=== PATIENT | female | born 1965 | race Caucasian/White ===

== ENCOUNTER 2016-05-24 17:19 | Inpatient (IN) | payer SELFPAY ==
--- NOTE | 2016-05-24 18:29 | ER Document Report ---
ED Medical Screen (RME) - General Chief Complaint: Flank Pain Stated Complaint: RIGHT FLANK PAIN TRAVEL OUTSIDE OF THE [place] IN LAST 30 DAYS: No - HPI Patient complains to provider of: right flank pain Notes: 05/24/16 18:28 Right flank pain for 4 days with cold-like symptoms no dysuria no diarrhea patient history hysterectomy - Related Data Allergies/Adverse Reactions: ciprofloxacin [From Cipro] Allergy (Verified 05/24/16 17:24) ciprofloxacin HCl [From Cipro] Allergy (Verified 05/24/16 17:24) Past Medical History - Past Medical History Cardiac Medical History: Reports: Hx Hypertension Renal/ Medical History: Denies: Hx Peritoneal Dialysis Musculoskeltal Medical History: Reports Hx Arthritis, Reports Hx Muscle Spasm Psychiatric Medical History: Reports: Hx Depression Past Surgical History: Reports: Hx Appendectomy, Hx Cholecystectomy, Hx Hysterectomy - Immunizations Hx Diphtheria, Pertussis, Tetanus Vaccination: Yes Review of Systems - Review of Systems Gastrointestinal: Abdominal pain Physical Exam - Vital signs Vitals: Temp Pulse Resp BP Pulse Ox 98.5 F 110 H 22 H 197/110 H 97 05/24/16 17:27 05/24/16 17:27 05/24/16 17:27 05/24/16 17:27 05/24/16 17:27 - Cardiovascular Rhythm: Regular Heart sounds: Normal auscultation Course - Vital Signs Vital signs: Temp Pulse Resp BP Pulse Ox 98.5 F 110 H 22 H 197/110 H 97 05/24/16 17:27 05/24/16 17:27 05/24/16 17:27 05/24/16 17:27 05/24/16 17:27
[2016-05-24 18:44] LABS: ABSOLUTE EOSINOPHILS # (AUTO) 0.3 10^3/uL (0.0-0.6); ABSOLUTE LYMPHOCYTES (AUTO) 3.2 10^3/uL (0.5-4.7); ABSOLUTE MONOCYTES (AUTO) 0.7 10^3/uL (0.1-1.4); ABSOLUTE NEUT (AUTO) 6.3 10^3/uL (1.7-8.2); BASOPHILS % (AUTO) 0.4 % (0-2); EOSINOPHILS % (AUTO) 2.9 % (0-6); HEMATOCRIT 41.5 % (36.0-47.0); HEMOGLOBIN 14.5 g/dL (12.0-15.5); LYMPHOCYTES % (AUTO) 30.4 % (13-45); MEAN CORPUSCULAR HEMOGLOBIN 33.2 pg (27.0-33.4); MEAN CORPUSCULAR VOLUME 95 fl (80-97); MONOCYTES % (AUTO) 6.9 % (3-13); RED BLOOD COUNT 4.37 10^6/uL (3.72-5.28); RED CELL DISTRIBUTION WIDTH 13.9 % (11.5-14.0); SEGMENTED NEUTROPHILS % (AUTO) 59.4 % (42-78); WHITE BLOOD COUNT 10.7 10^3/uL (4.0-10.5)
[2016-05-24 18:55] LABS: APPEARANCE,URINE SLIGHTLY-CLOUDY; BILIRUBIN,URINE NEGATIVE (NEGATIVE); GLUCOSE, URINE NEGATIVE (NEGATIVE); KETONES,URINE NEGATIVE (NEGATIVE); LEUKOCYTE ESTERASE,URINE NEGATIVE (NEGATIVE); NITRITE,URINE NEGATIVE (NEGATIVE); PROTEIN,URINE NEGATIVE (NEGATIVE); URINE SPECIFIC GRAVITY 1.025; UROBILINOGEN,URINE NEGATIVE mg/dL (<2.0)
[2016-05-24 19:05] LABS: ALANINE AMINOTRANSFERASE 53 U/L (9-52); ALBUMIN 4.5 g/dL (3.5-5.0); ALKALINE PHOSPHATASE 106 U/L (38-126); ANION GAP 13 (5-19); ASPARTATE AMINO TRANSFERASE 33 U/L (14-36); BILIRUBIN,DIRECT 0.2 mg/dL (0.0-0.4); BILIRUBIN,TOTAL 0.6 mg/dL (0.2-1.3); BLOOD UREA NITROGEN 18 mg/dL (7-20); CALCIUM 9.7 mg/dL (8.4-10.2); CARBON DIOXIDE 26 mmol/L (22-30); CHLORIDE 104 mmol/L (98-107); CREATININE RESULT 0.73 mg/dL (0.52-1.25); GLUCOSE 129 mg/dL (75-110); LIPASE 49.2 U/L (23-300); POTASSIUM 3.7 mmol/L (3.6-5.0); SODIUM 143.3 mmol/L (137-145); TOTAL PROTEIN 7.3 g/dL (6.3-8.2)
--- NOTE | 2016-05-24 21:07 | ER Document Report ---
ED GI/ - General Chief Complaint: Flank Pain Stated Complaint: RIGHT FLANK PAIN Notes: He shouldn't is a 50-year-old female presents emergency Department complaining of abdominal pain. Patient states that over the past week she has had a common cold with a dry cough but she denies any productive cough or fevers. She states that over the past 4 days she has had pain in her over her right iliac crest but now she has an area of swelling over her abdomen and up into her flank that is become more severe every day. She's been taking Motrin 400 mg every 8 hours for pain which she states is not helping at all. She denies any nausea, vomiting, constipation or diarrhea. States that her last bowel movement was this morning and was normal. Medical history significant for neurofibromatosis as well as history of kidney stones. Past surgical history significant for multiple surgeries for neurofibromatosis including removal of one on her left kidney, as well as cholecystectomy, appendectomy and hysterectomy TRAVEL OUTSIDE OF THE [place] IN LAST 30 DAYS: No - Related Data Allergies/Adverse Reactions: ciprofloxacin [From Cipro] Allergy (Verified 05/24/16 17:24) ciprofloxacin HCl [From Cipro] Allergy (Verified 05/24/16 17:24) Past Medical History - Social History Smoking Status: Current Every Day Smoker Drug Abuse: None Family History: Reviewed & Not Pertinent Patient has suicidal ideation: No Patient has homicidal ideation: No - Past Medical History Cardiac Medical History: Reports: Hx Hypertension Renal/ Medical History: Denies: Hx Peritoneal Dialysis Musculoskeltal Medical History: Reports Hx Arthritis, Reports Hx Muscle Spasm Psychiatric Medical History: Reports: Hx Depression Past Surgical History: Reports: Hx Appendectomy, Hx Cholecystectomy, Hx Hysterectomy - Immunizations Hx Diphtheria, Pertussis, Tetanus Vaccination: Yes Review of Systems - Review of Systems EENT: See HPI Respiratory: See HPI Gastrointestinal: See HPI -: Yes All other systems reviewed and negative Physical Exam - Vital signs Vitals: Temp Pulse Resp BP Pulse Ox 98.5 F 110 H 22 H 197/110 H 97 05/24/16 17:27 05/24/16 17:27 05/24/16 17:27 05/24/16 17:27 05/24/16 17:27 - Notes Notes: Vital signs: Initial blood pressure was hypertensive, recheck once patient was in a room was 165/109 and denies any history of high blood pressure but is in severe pain. PHYSICAL EXAM GENERAL: Alert, interacts well. HEAD: Normocephalic, atraumatic. EYES: Pupils equal, round, and reactive to light. Extraocular movements intact. ENT: Oral mucosa moist, tongue midline. NECK: Full range of motion. Supple. Trachea midline. LUNGS: Clear to auscultation bilaterally, no wheezes, rales, or rhonchi. No respiratory distress. HEART: Regular rate and rhythm. No murmurs, gallops, or rubs. ABDOMEN: distended, tender on the superficial aspect. Evidence of swelling in tense area along the right lower quadrants up into the right flank that is tender to superficial touch. Patient does have a history of an umbilical hernia that is easily reducible and nontender. No guarding, rebound, or rigidity.. Bowel sounds present in all 4 quadrants. EXTREMITIES: Moves all 4 extremities spontaneously. No edema, radial and dorsalis pedis pulses 2/4 bilaterally. No cyanosis. NEUROLOGICAL: Alert and oriented x4. Normal speech. PSYCH: Normal affect, normal mood. SKIN: Warm, dry, normal turgor. No rashes or lesions noted. Course - Re-evaluation Re-evalutation: 05/24/16 22:15 Patient is a 50-year-old female who is hemodynamically stable, no acute distress and afebrile. H&H is stable, no evidence of leukocytosis. No evidence of electrolyte abnormalities, abnormal liver, pancreatic or renal function. Renal stone protocol CT reveals inflammation and hemorrhage into the abdominal wall musculature of the right side of the abdomen. This is involved from the right upper quadrant into the iliac crest as well as into the retroperitoneum and along the flank. Since are not available from the radiologist. Based on this finding I discussed with supervising physician Dr. Odell Harris who has recommended consultation to surgical list on-call. I have consulted Dr. Hector Medrano who has come to evaluate the patient. After evaluation of her CT scan as well as discussing with the patient, he has recommended admission to the hospital for evaluation by IR tomorrow for possible angiogram and embolization of the vessel. Discussion with patient she is agreeable. Per [facility] protocol and guidelines, this case was discussed with supervising physician Dr. Odell Harris prior to admission - Vital Signs Vital signs: Temp Pulse Resp BP Pulse Ox 98.5 F 110 H 22 H 197/110 H 97 05/24/16 17:27 05/24/16 17:27 05/24/16 17:27 05/24/16 17:27 05/24/16 17:27 - Laboratory Result Diagrams: 05/24/16 18:30 05/24/16 18:30 Laboratory results interpreted by me: 05/24/16 05/24/16 05/24/16 18:30 18:30 18:35 WBC 10.7 H Glucose 129 H ALT 53 H Urine Blood SMALL H - Diagnostic Test Radiology reviewed: Image reviewed, Reports reviewed Discharge - Discharge Clinical Impression: Hematoma of muscle Disposition: ADMITTED INPATIENT Admitting Provider: Surgicalist - [facility] Unit Admitted: Surgical Floor
[2016-05-24] MEDS ORDERED: NORMAL SALINE 1000 ML 1,000 ML IV PRN (21:34)
[2016-05-24] MEDS ORDERED: MORPHINE SULFATE 10 MG/ML INJ IV ONE (21:34)
[2016-05-24] MEDS ORDERED: HYDRALAZINE HCL INJ/PF 20 MG/1 ML SDV IV ONE (22:21)
--- NOTE | 2016-05-24 22:38 | HISTORY AND PHYSICAL E ---
History and Physical NAME: MAXIMILIAN MCGHEE : 1965 AGE: 50Y ADMITTED: 05/24/2016 ROOM: ED39 CHIEF COMPLAINT: Right abdominal side pains. HISTORY OF PRESENT ILLNESS: This is a 50-year-old female with known history of neurofibromatosis who has been coughing for the past 4 days and complaining of right lateral abdominal wall pains and getting worse. She has a CAT scan of the abdomen in the emergency room, which showed an area of moderate inflammatory changes in the right lateral abdominal musculature, as well as in the right lower quadrant and retroperitoneum. This appears to be probable hemorrhage of uncertain etiology. Also has hemorrhage above the level of the right iliac crest. PAST HISTORY: 1. History of total hysterectomy for bleeding neurofibromatosis. 2. Lap appendectomy. 3. Lap cholecystectomy. 4. Multiple excisions of neurofibromatosis on her scalp, right side near the ribs, the area just above the kidney. She claims she has at least 52 neurofibromatosis in her body. FAMILY HISTORY: She does not know her father. Her mother's side does not have any history of neurofibromatosis. SOCIAL HISTORY: Smokes 1/2 pack a day. Denies alcohol or drug use. REVIEW OF SYSTEMS: As in HPI. There has been coughing for at least 4 days and really has severe cough. She also took ibuprofen 400 mg every 8 h. for the past 2 days. Severe pain along the right side of the abdomen and noted some swelling. Denies any dysuria, diarrhea or constipation. No headaches. No earaches. No balance problems. No chest pains. The rest of the review of systems are unremarkable. ALLERGIES: No known. PHYSICAL EXAMINATION: GENERAL: Well-developed, slightly overweight female, alert and oriented, complaining of a lot of pains on the right abdominal wall area. NECK: Supple. No thyromegaly. LUNGS: Clear. HEART: Regular sinus rhythm. ABDOMEN: Soft. She has marked tenderness along the right side above the iliac crest to the costal margin area. This was also noted to be quite swollen compared to the left side. It is noted to be markedly tender. EXTREMITIES: No edema. Multiple areas of neurofibromatosis in both arms. IMPRESSION: Hematoma/hemorrhage along the right lateral abdominal musculature, likely due to bleeding neurofibromatosis. PLAN: Keep the patient n.p.o. and hydrate and manage with pain medication. We will consult Interventional Radiology to see if they can do any embolization if needed. DICTATING PHYSICIAN: NAOMI TAYLOR M.D. [id number] PHY#: [id number] ID: [id number] JOB#: [id number] ACCT: [id number] cc:NAOMI TAYLOR M.D. >
[2016-05-25] MEDS ORDERED: NORMAL SALINE 1000 ML 1,000 ML IV PRN (00:24)
[2016-05-25] MEDS: HYDROMORPHONE HCL INJ/PF 2 MG/ML AMPULE IV PRN ×7 (00:36→23:15)
[2016-05-25] MEDS ORDERED: HYDRALAZINE HCL INJ/PF 20 MG/1 ML SDV IV PRN (02:15)
[2016-05-25] MEDS ORDERED: AMLODIPINE BESYLATE 10 MG TABLET PO ONE (02:18)
[2016-05-25 02:42] LABS: ABSOLUTE EOSINOPHILS # (AUTO) 0.4 10^3/uL (0.0-0.6); ABSOLUTE MONOCYTES (AUTO) 0.7 10^3/uL (0.1-1.4); ABSOLUTE NEUT (AUTO) 5.8 10^3/uL (1.7-8.2); BASOPHILS % (AUTO) 0.3 % (0-2); EOSINOPHILS % (AUTO) 3.6 % (0-6); HEMATOCRIT 36.8 % (36.0-47.0); HEMOGLOBIN 12.8 g/dL (12.0-15.5); HGB HCT DIFFERENCE 1.6; LYMPHOCYTES % (AUTO) 30.3 % (13-45); MEAN CORPUSCULAR HGB CONC 34.9 g/dL (32.0-36.0); MEAN CORPUSCULAR VOLUME 95 fl (80-97); MONOCYTES % (AUTO) 7.4 % (3-13); RED BLOOD COUNT 3.89 10^6/uL (3.72-5.28); RED CELL DISTRIBUTION WIDTH 13.6 % (11.5-14.0); SEGMENTED NEUTROPHILS % (AUTO) 58.4 % (42-78); WHITE BLOOD COUNT 9.9 10^3/uL (4.0-10.5)
[2016-05-25 02:47] LABS: PARTIAL THROMBOPLASTIN TIME 28.1 SEC (23.5-35.8); PROTHROMBIN TIME 12.8 SEC (11.4-15.4)
[2016-05-25 02:55] LABS: ANION GAP 12 (5-19); BLOOD UREA NITROGEN 17 mg/dL (7-20); CALCIUM 8.9 mg/dL (8.4-10.2); CARBON DIOXIDE 22 mmol/L (22-30); CHLORIDE 108 mmol/L (98-107); CREATININE RESULT 0.55 mg/dL (0.52-1.25); GLUCOSE 137 mg/dL (75-110); POTASSIUM 3.2 mmol/L (3.6-5.0); SODIUM 141.9 mmol/L (137-145)
[2016-05-25] MEDS: KETOROLAC TROMETHAMINE INJ/PF 30 MG/1 ML SDV IV PRN ×2 (06:40→14:04)
--- NOTE | 2016-05-25 06:41 | PDOC CONSULTATION ---
Consultation Consult reason:: Hypertension History of Present Illness Admission Date/PCP: 05/24/16 21:37 Patient complains of: Right-sided abdominal wall pain History of Present Illness: MAXIMILIAN MCGHEE is a 50 year old female with history of neurofibromatosis and tobacco dependence who been her usual state of health until approximately 4 days ago having symptoms of an upper respiratory infection with rhinorrhea and postnasal drip who noted the rapid onset of severe abdominal pain after coughing prompting to seek evaluation emergency room where she has a CT of the abdomen showing moderate inflammation in the right lateral abdominal musculature and right lower quadrant and retroperitoneum suspicious for hemorrhage. She is admitted to surgery who consults the hospitalist for hypertension though the patient is writhing in bed in pain. Past Medical History Cardiac Medical History: Reports: Hypertension Neurological Medical History: Reports: Other - Neurofibromatosis with widespread subcutaneous tumors Musculoskeltal Medical History: Reports: Arthritis Psychiatric Medical History: Reports: Depression Past Surgical History Past Surgical History: Reports: Appendectomy, Cholecystectomy, Hysterectomy Social History Information Source: Patient Lives with: Family Smoking Status: Current Every Day Smoker - Advance Directive Resuscitation Status: Full Code Family History Family History: Hypertension Parental Family History Reviewed: Yes Children Family History Reviewed: Yes Sibling(s) Family History Reviewed.: Yes Medication/Allergy Home Medications: Atenolol [Tenormin 50 mg Tablet] 50 mg PO DAILY 02/07/14 Guaifenesin/Codeine Phosphate [Codeine-Guaifen 10-100 mg/5 ml] 5 ml PO Q6 #120 liquid 02/07/14 Azithromycin [Zithromax 250 mg Tablet] 250 mg PO ASDIR PRN #6 tablet 02/09/14 Ibuprofen [Motrin 600 Mg Tablet] 600 mg PO TID #30 tablet 02/09/14 Prednisone [Deltasone 20 mg Tablet] 2 tab PO DAILY 5 Days 02/09/14 Hydrocodone/Acetaminophen [[place] 5-325 mg Tablet] 1 tab PO QIDP PRN #14 tablet 12/14/14 Allergies/Adverse Reactions: ciprofloxacin [From Cipro] Allergy (Verified 05/24/16 17:24) ciprofloxacin HCl [From Cipro] Allergy (Verified 05/24/16 17:24) Review of Systems Constitutional: ABSENT: chills, fever(s), headache(s), weight gain, weight loss Eyes: ABSENT: visual disturbances Ears: ABSENT: hearing changes Cardiovascular: ABSENT: chest pain, dyspnea on exertion, edema, orthropnea, palpitations Respiratory: ABSENT: cough, hemoptysis Gastrointestinal: ABSENT: abdominal pain, constipation, diarrhea, hematemesis, hematochezia, nausea, vomiting Genitourinary: ABSENT: dysuria, hematuria Musculoskeletal: ABSENT: joint swelling Integumentary: ABSENT: rash, wounds Neurological: ABSENT: abnormal gait, abnormal speech, confusion, dizziness, focal weakness, syncope Psychiatric: ABSENT: anxiety, depression, homidical ideation, suicidal ideation Endocrine: ABSENT: cold intolerance, heat intolerance, polydipsia, polyuria Hematologic/Lymphatic: ABSENT: easy bleeding, easy bruising Physical Exam Vital Signs: Temp Pulse Resp BP Pulse Ox 97.4 F 113 H 19 164/93 H 94 05/25/16 04:28 05/25/16 04:28 05/25/16 04:28 05/25/16 04:28 05/25/16 04:28 Intake & Output 05/23/16 05/24/16 05/25/16 11:59 11:59 11:59 Intake Total 525 Balance 525 Weight 104 kg General appearance: PRESENT: mild distress, obese Head exam: PRESENT: atraumatic, normocephalic Eye exam: PRESENT: conjunctiva pink, EOMI, PERRLA. ABSENT: scleral icterus Ear exam: PRESENT: normal external ear exam Mouth exam: PRESENT: moist, tongue midline Neck exam: ABSENT: carotid bruit, JVD, lymphadenopathy, thyromegaly Respiratory exam: PRESENT: clear to auscultation neptali. ABSENT: rales, rhonchi, wheezes Cardiovascular exam: PRESENT: RRR. ABSENT: diastolic murmur, rubs, systolic murmur Pulses: PRESENT: normal dorsalis pedis pul Vascular exam: PRESENT: normal capillary refill GI/Abdominal exam: PRESENT: distended, firm, hernia, hyperactive bowel sounds, mass, tenderness. ABSENT: guarding Rectal exam: PRESENT: deferred Extremities exam: PRESENT: full ROM. ABSENT: calf tenderness, clubbing, pedal edema Neurological exam: PRESENT: alert, awake, oriented to person, oriented to place , oriented to time, oriented to situation, CN II-XII grossly intact. ABSENT: motor sensory deficit Psychiatric exam: PRESENT: appropriate affect, normal mood. ABSENT: homicidal ideation, suicidal ideation Skin exam: PRESENT: dry, intact, warm. ABSENT: cyanosis, rash Results Laboratory Results: 05/25/16 02:20 05/25/16 02:20 05/25/16 05/25/16 05/25/16 02:20 02:20 02:20 WBC 9.9 RBC 3.89 Hgb 12.8 Hct 36.8 MCV 95 MCH 33.0 MCHC 34.9 RDW 13.6 Plt Count 156 Seg Neutrophils % 58.4 Lymphocytes % 30.3 Monocytes % 7.4 Eosinophils % 3.6 Basophils % 0.3 Absolute Neutrophils 5.8 Absolute Lymphocytes 3.0 Absolute Monocytes 0.7 Absolute Eosinophils 0.4 Absolute Basophils 0.0 Sodium 141.9 Potassium 3.2 L Chloride 108 H Carbon Dioxide 22 Anion Gap 12 BUN 17 Creatinine 0.55 Est GFR ( Amer) > 60 Est GFR (Non-Af Amer) > 60 Glucose 137 H Calcium 8.9 Blood Type O POSITIVE Antibody Screen NEGATIVE Impressions: Limited or Localized CT 05/24/16 19:26 IMPRESSION: Moderate inflammatory changes are present in the right lateral abdominal musculature as well as in the right lower quadrant and retroperitoneum , appears to be probable hemorrhage of uncertain etiology. Thickening of the right lateral abdominal wall musculature with focal thickening -hemorrhage above the level of the iliac crest. Correlate for history of trauma or recent procedure. Assessment & Plan - Diagnosis (1) Hypertension Is this a current diagnosis for this admission?: YesPlan: Exacerbated by pain she receive amlodipine and when necessary hydralazine following symptomatically management of pain (2) URI (upper respiratory infection) Is this a current diagnosis for this admission?: YesPlan: Flonase and chlorpheniramine (3) Hematoma of muscle Is this a current diagnosis for this admission?: YesPlan: Defer to surgery - Time Time Spent: 30 to 50 Minutes
[2016-05-25] MEDS ORDERED: CHLORPHENIRAMINE MALEATE 4 MG TABLET PO ONE (06:42)
[2016-05-25] MEDS ORDERED: MAGNESIUM SULFATE/D5W 100 ML IV SCH (06:45)
[2016-05-25] MEDS ORDERED: POTASSI CL 20 MEQ/50 ML RIDER 50 ML IV SCH (06:45)
[2016-05-25] MEDS: FLUTICASONE NASAL SPRAY 50 MCG/SPRY 120 SPRAY/16 GM NASL SCH ×2 (09:11→21:56)
[2016-05-25] MEDS: POTASSIUM CHLORIDE 20 MEQ/15 ML UDCUP PO SCH ×2 (10:37→21:56)
--- NOTE | 2016-05-25 12:29 | PDOC PROGRESS REPORT ---
Subjective Progress Note for:: 05/25/16 Subjective:: Complains of pain in the right lateral abdominal wall Physical Exam Vital Signs: Temp Pulse Resp BP Pulse Ox 97.5 F 107 H 18 140/106 H 98 05/25/16 11:39 05/25/16 11:39 05/25/16 11:39 05/25/16 11:39 05/25/16 11:39 Intake & Output 05/24/16 05/25/16 05/26/16 06:59 06:59 06:59 Intake Total 525 480 Balance 525 480 Weight 104 kg General appearance: PRESENT: no acute distress Eye exam: PRESENT: conjunctiva pink. ABSENT: scleral icterus Mouth exam: PRESENT: moist, tongue midline Respiratory exam: PRESENT: clear to auscultation neptali. ABSENT: rales, rhonchi, wheezes Cardiovascular exam: PRESENT: RRR. ABSENT: diastolic murmur, rubs, systolic murmur GI/Abdominal exam: PRESENT: normal bowel sounds, soft, tenderness - Right-sided abdominal tenderness but no guarding or rebound. ABSENT: distended, guarding, mass, organolmegaly, rebound Extremities exam: ABSENT: calf tenderness, clubbing, pedal edema Neurological exam: PRESENT: alert, awake, oriented to person, oriented to place , oriented to time, oriented to situation, CN II-XII grossly intact. ABSENT: motor sensory deficit Psychiatric exam: PRESENT: appropriate affect Results Laboratory Results: 05/25/16 02:20 05/25/16 02:20 05/25/16 05/25/16 05/25/16 02:20 02:20 02:20 WBC 9.9 RBC 3.89 Hgb 12.8 Hct 36.8 MCV 95 MCH 33.0 MCHC 34.9 RDW 13.6 Plt Count 156 Seg Neutrophils % 58.4 Lymphocytes % 30.3 Monocytes % 7.4 Eosinophils % 3.6 Basophils % 0.3 Absolute Neutrophils 5.8 Absolute Lymphocytes 3.0 Absolute Monocytes 0.7 Absolute Eosinophils 0.4 Absolute Basophils 0.0 Sodium 141.9 Potassium 3.2 L Chloride 108 H Carbon Dioxide 22 Anion Gap 12 BUN 17 Creatinine 0.55 Est GFR ( Amer) > 60 Est GFR (Non-Af Amer) > 60 Glucose 137 H Calcium 8.9 Blood Type O POSITIVE Antibody Screen NEGATIVE Impressions: Limited or Localized CT 05/24/16 19:26 IMPRESSION: Moderate inflammatory changes are present in the right lateral abdominal musculature as well as in the right lower quadrant and retroperitoneum , appears to be probable hemorrhage of uncertain etiology. Thickening of the right lateral abdominal wall musculature with focal thickening -hemorrhage above the level of the iliac crest. Correlate for history of trauma or recent procedure. Assessment & Plan - Diagnosis (1) Hematoma of muscle Is this a current diagnosis for this admission?: YesPlan: This is being managed conservatively by surgery (2) Hypertension Is this a current diagnosis for this admission?: YesPlan: This is made worse by her pain. (3) URI (upper respiratory infection) Is this a current diagnosis for this admission?: Yes (4) Neurofibromatosis Is this a current diagnosis for this admission?: Yes (5) Hypokalemia Is this a current diagnosis for this admission?: YesPlan: We will replace her potassium and continue to monitor. - Time Time Spent with patient: 15-24 minutes - Inpatient Certification Medical Necessity: Need for Pain Control
[2016-05-25] MEDS ORDERED: NICOTINE 14 MG/24 HR PATCH.TD24 TD ONE (12:30)
[2016-05-25] MEDS ORDERED: FAMOTIDINE 20 MG TABLET PO ONE (14:00)
[2016-05-25] MEDS ORDERED: HYDROMORPHONE HCL INJ/PF 2 MG/ML AMPULE IV PRN (14:23)
[2016-05-25] MEDS ORDERED: HYDROMORPHONE HCL INJ/PF 2 MG/ML AMPULE IV ONE (16:45)
[2016-05-25] MEDS: DOCUSATE SODIUM 100 MG CAPSULE PO SCH (17:45)
[2016-05-25] MEDS: CHLORPHENIRAMINE MALEATE 4 MG TABLET PO PRN (17:47)
--- NOTE | 2016-05-25 21:01 | PDOC PROGRESS REPORT ---
Subjective Progress Note for:: 05/25/16 Subjective:: She' is his complaining of abdominal pain this morning but decreased compared to yesterday. Physical Exam Vital Signs: Temp Pulse Resp BP Pulse Ox 97.3 F 106 H 20 119/88 H 96 05/25/16 19:12 05/25/16 19:12 05/25/16 19:12 05/25/16 19:12 05/25/16 19:12 Intake & Output 05/24/16 05/25/16 05/26/16 06:59 06:59 06:59 Intake Total 525 1979 Balance 525 1979 Weight 104 kg 104 kg General appearance: PRESENT: mild distress GI/Abdominal exam: PRESENT: other Results Laboratory Results: 05/25/16 02:20 05/25/16 02:20 05/25/16 05/25/16 05/25/16 02:20 02:20 02:20 WBC 9.9 RBC 3.89 Hgb 12.8 Hct 36.8 MCV 95 MCH 33.0 MCHC 34.9 RDW 13.6 Plt Count 156 Seg Neutrophils % 58.4 Lymphocytes % 30.3 Monocytes % 7.4 Eosinophils % 3.6 Basophils % 0.3 Absolute Neutrophils 5.8 Absolute Lymphocytes 3.0 Absolute Monocytes 0.7 Absolute Eosinophils 0.4 Absolute Basophils 0.0 Sodium 141.9 Potassium 3.2 L Chloride 108 H Carbon Dioxide 22 Anion Gap 12 BUN 17 Creatinine 0.55 Est GFR ( Amer) > 60 Est GFR (Non-Af Amer) > 60 Glucose 137 H Calcium 8.9 Blood Type O POSITIVE Antibody Screen NEGATIVE Impressions: Limited or Localized CT 05/24/16 19:26 IMPRESSION: Moderate inflammatory changes are present in the right lateral abdominal musculature as well as in the right lower quadrant and retroperitoneum , appears to be probable hemorrhage of uncertain etiology. Thickening of the right lateral abdominal wall musculature with focal thickening -hemorrhage above the level of the iliac crest. Correlate for history of trauma or recent procedure. Assessment & Plan - Diagnosis (1) Hematoma of muscle Is this a current diagnosis for this admission?: YesPlan: Patient examined earlier this morning. She had no evidence of an acute abdomen. She is extremely anxious. Plan: 1. Keep on clear liquids today. 2. Discontinue any plans for interventional radiology; spoke with primary care service; agree with potassium replacement on an oral basis. 3. Anticipate advancing diet tomorrow. Hopefully home tomorrow as well.
[2016-05-25] MEDS: FAMOTIDINE 20 MG TABLET PO SCH (21:56)
[2016-05-26] MEDS: HYDROMORPHONE HCL INJ/PF 2 MG/ML AMPULE IV PRN ×6 (01:58→21:18)
[2016-05-26 06:51] LABS: ABSOLUTE EOSINOPHILS # (AUTO) 0.4 10^3/uL (0.0-0.6); ABSOLUTE LYMPHOCYTES (AUTO) 2.6 10^3/uL (0.5-4.7); ABSOLUTE MONOCYTES (AUTO) 0.8 10^3/uL (0.1-1.4); ABSOLUTE NEUT (AUTO) 8.7 10^3/uL (1.7-8.2); BASOPHILS % (AUTO) 0.2 % (0-2); EOSINOPHILS % (AUTO) 3.3 % (0-6); HEMATOCRIT 33.9 % (36.0-47.0); HEMOGLOBIN 11.6 g/dL (12.0-15.5); HGB HCT DIFFERENCE 0.9; LYMPHOCYTES % (AUTO) 20.4 % (13-45); MEAN CORPUSCULAR HEMOGLOBIN 32.8 pg (27.0-33.4); MEAN CORPUSCULAR HGB CONC 34.3 g/dL (32.0-36.0); MEAN CORPUSCULAR VOLUME 96 fl (80-97); MONOCYTES % (AUTO) 6.1 % (3-13); RED BLOOD COUNT 3.54 10^6/uL (3.72-5.28); WHITE BLOOD COUNT 12.5 10^3/uL (4.0-10.5)
[2016-05-26 07:04] LABS: ANION GAP 12 (5-19); BLOOD UREA NITROGEN 9 mg/dL (7-20); CARBON DIOXIDE 23 mmol/L (22-30); CHLORIDE 103 mmol/L (98-107); CREATININE RESULT 0.49 mg/dL (0.52-1.25); GLUCOSE 135 mg/dL (75-110); POTASSIUM 3.4 mmol/L (3.6-5.0); SODIUM 138.2 mmol/L (137-145)
[2016-05-26] MEDS: NICOTINE 14 MG/24 HR PATCH.TD24 TD SCH (07:56)
--- NOTE | 2016-05-26 09:08 | PDOC PROGRESS REPORT ---
Subjective Subjective:: less pains Has ecchymosis rt flank but softer now. Plan: start po pain meds. Will need BP maintenance med. Ask hospitalist to order. Pt on Atenolol 25 mgs po daily in the past Physical Exam Vital Signs: Temp Pulse Resp BP Pulse Ox 98.9 F 112 H 18 152/103 H 94 05/26/16 07:53 05/26/16 07:53 05/26/16 07:53 05/26/16 07:53 05/26/16 07:53 Intake & Output 05/25/16 05/26/16 05/27/16 06:59 06:59 06:59 Intake Total 525 3280 Balance 525 3280 Weight 104 kg 104 kg Results Laboratory Results: 05/26/16 06:35 05/26/16 06:35 05/26/16 05/26/16 06:35 06:35 WBC 12.5 H RBC 3.54 L Hgb 11.6 L Hct 33.9 L MCV 96 MCH 32.8 MCHC 34.3 RDW 14.0 Plt Count 187 Seg Neutrophils % 70.0 Lymphocytes % 20.4 Monocytes % 6.1 Eosinophils % 3.3 Basophils % 0.2 Absolute Neutrophils 8.7 H Absolute Lymphocytes 2.6 Absolute Monocytes 0.8 Absolute Eosinophils 0.4 Absolute Basophils 0.0 Sodium 138.2 Potassium 3.4 L Chloride 103 Carbon Dioxide 23 Anion Gap 12 BUN 9 Creatinine 0.49 L Est GFR ( Amer) > 60 Est GFR (Non-Af Amer) > 60 Glucose 135 H Calcium 9.0 Impressions: Limited or Localized CT 05/24/16 19:26 IMPRESSION: Moderate inflammatory changes are present in the right lateral abdominal musculature as well as in the right lower quadrant and retroperitoneum , appears to be probable hemorrhage of uncertain etiology. Thickening of the right lateral abdominal wall musculature with focal thickening -hemorrhage above the level of the iliac crest. Correlate for history of trauma or recent procedure. Assessment & Plan - Plan Summary Plan Summary: Start percocet prn BP meds per Hospitalist
[2016-05-26] MEDS: DOCUSATE SODIUM 100 MG CAPSULE PO SCH ×2 (09:57→18:40)
[2016-05-26] MEDS: POTASSIUM CHLORIDE 20 MEQ/15 ML UDCUP PO SCH ×2 (09:58→21:18)
[2016-05-26] MEDS: DIPHENHYDRAMINE HCL 50 MG CAPSULE PO PRN ×2 (09:58→18:43)
[2016-05-26] MEDS: FAMOTIDINE 20 MG TABLET PO SCH ×2 (09:58→21:18)
[2016-05-26] MEDS: OXYCODONE-ACETAMINOPHEN 5-325 MG TABLET PO PRN ×3 (10:23→18:38)
[2016-05-26] MEDS: FLUTICASONE NASAL SPRAY 50 MCG/SPRY 120 SPRAY/16 GM NASL SCH ×2 (10:25→21:18)
[2016-05-26] MEDS: CHLORPHENIRAMINE MALEATE 4 MG TABLET PO PRN (10:25)
--- NOTE | 2016-05-26 13:18 | PDOC PROGRESS REPORT ---
Subjective Progress Note for:: 05/26/16 Subjective:: Complains of pain in the right lateral abdominal wall Physical Exam Vital Signs: Temp Pulse Resp BP Pulse Ox 97.4 F 112 H 17 147/100 H 96 05/26/16 11:13 05/26/16 11:13 05/26/16 11:13 05/26/16 11:13 05/26/16 11:13 Intake & Output 05/25/16 05/26/16 05/27/16 06:59 06:59 06:59 Intake Total 525 3280 Balance 525 3280 Weight 104 kg 104 kg General appearance: PRESENT: no acute distress Eye exam: PRESENT: conjunctiva pink. ABSENT: scleral icterus Mouth exam: PRESENT: moist, tongue midline Neck exam: ABSENT: JVD Respiratory exam: PRESENT: clear to auscultation neptali. ABSENT: rales, rhonchi, wheezes Cardiovascular exam: PRESENT: RRR. ABSENT: diastolic murmur, rubs, systolic murmur GI/Abdominal exam: PRESENT: normal bowel sounds, soft, tenderness - Tenderness over the right lateral abdominal wall. Large hematoma present on the right lateral abdomen. ABSENT: distended, guarding, mass, organolmegaly, rebound Extremities exam: ABSENT: calf tenderness, clubbing, pedal edema Neurological exam: PRESENT: alert, awake, oriented to person, oriented to place , oriented to time, oriented to situation, CN II-XII grossly intact. ABSENT: motor sensory deficit Psychiatric exam: PRESENT: appropriate affect Skin exam: PRESENT: other - Arch hematoma on the right abdominal lateral wall and flank area Results Laboratory Results: 05/26/16 06:35 05/26/16 06:35 05/26/16 05/26/16 06:35 06:35 WBC 12.5 H RBC 3.54 L Hgb 11.6 L Hct 33.9 L MCV 96 MCH 32.8 MCHC 34.3 RDW 14.0 Plt Count 187 Seg Neutrophils % 70.0 Lymphocytes % 20.4 Monocytes % 6.1 Eosinophils % 3.3 Basophils % 0.2 Absolute Neutrophils 8.7 H Absolute Lymphocytes 2.6 Absolute Monocytes 0.8 Absolute Eosinophils 0.4 Absolute Basophils 0.0 Sodium 138.2 Potassium 3.4 L Chloride 103 Carbon Dioxide 23 Anion Gap 12 BUN 9 Creatinine 0.49 L Est GFR ( Amer) > 60 Est GFR (Non-Af Amer) > 60 Glucose 135 H Calcium 9.0 Impressions: Limited or Localized CT 05/24/16 19:26 IMPRESSION: Moderate inflammatory changes are present in the right lateral abdominal musculature as well as in the right lower quadrant and retroperitoneum , appears to be probable hemorrhage of uncertain etiology. Thickening of the right lateral abdominal wall musculature with focal thickening -hemorrhage above the level of the iliac crest. Correlate for history of trauma or recent procedure. Assessment & Plan - Diagnosis (1) Hematoma of muscle Is this a current diagnosis for this admission?: YesPlan: This is being managed conservatively by surgery (2) Hypertension Is this a current diagnosis for this admission?: YesPlan: This is made worse by her pain. We'll start her on Toprol today. (3) URI (upper respiratory infection) Is this a current diagnosis for this admission?: Yes (4) Neurofibromatosis Is this a current diagnosis for this admission?: Yes (5) Hypokalemia Is this a current diagnosis for this admission?: YesPlan: We will replace her potassium and continue to monitor. - Time Time Spent with patient: 15-24 minutes - Inpatient Certification Medical Necessity: Need Close Monitoring Due to Risk of Patient Decompensation
[2016-05-26] MEDS ORDERED: METOPROLOL SUCCINATE 50 MG TAB.SR.24H PO ONE (13:45)
[2016-05-26] MEDS: OXYCODONE HCL IR 5 MG TABLET PO PRN (18:38)
[2016-05-26] MEDS: LORAZEPAM 1 MG TABLET PO PRN (21:18)
[2016-05-27] MEDS: OXYCODONE-ACETAMINOPHEN 5-325 MG TABLET PO PRN ×5 (00:14→22:12)
[2016-05-27] MEDS: OXYCODONE HCL IR 5 MG TABLET PO PRN ×5 (00:14→22:12)
[2016-05-27] MEDS: HYDROMORPHONE HCL INJ/PF 2 MG/ML AMPULE IV PRN ×4 (03:59→20:03)
[2016-05-27] MEDS: LORAZEPAM 1 MG TABLET PO PRN ×4 (06:40→21:36)
[2016-05-27 06:52] LABS: ABSOLUTE EOSINOPHILS # (AUTO) 0.4 10^3/uL (0.0-0.6); ABSOLUTE LYMPHOCYTES (AUTO) 2.5 10^3/uL (0.5-4.7); ABSOLUTE MONOCYTES (AUTO) 0.6 10^3/uL (0.1-1.4); ABSOLUTE NEUT (AUTO) 4.3 10^3/uL (1.7-8.2); BASOPHILS % (AUTO) 0.3 % (0-2); EOSINOPHILS % (AUTO) 4.8 % (0-6); HEMATOCRIT 31.8 % (36.0-47.0); HEMOGLOBIN 11.2 g/dL (12.0-15.5); HGB HCT DIFFERENCE 1.8; LYMPHOCYTES % (AUTO) 32.2 % (13-45); MEAN CORPUSCULAR HEMOGLOBIN 33.2 pg (27.0-33.4); MEAN CORPUSCULAR HGB CONC 35.2 g/dL (32.0-36.0); MEAN CORPUSCULAR VOLUME 94 fl (80-97); MONOCYTES % (AUTO) 8.3 % (3-13); RED BLOOD COUNT 3.37 10^6/uL (3.72-5.28); RED CELL DISTRIBUTION WIDTH 13.9 % (11.5-14.0); SEGMENTED NEUTROPHILS % (AUTO) 54.4 % (42-78); WHITE BLOOD COUNT 7.9 10^3/uL (4.0-10.5)
[2016-05-27] MEDS: POTASSIUM CHLORIDE 20 MEQ/15 ML UDCUP PO SCH (09:27)
[2016-05-27] MEDS: METOPROLOL SUCCINATE 50 MG TAB.SR.24H PO SCH (09:27)
[2016-05-27] MEDS: FAMOTIDINE 20 MG TABLET PO SCH ×2 (09:28→21:35)
[2016-05-27] MEDS: NICOTINE 14 MG/24 HR PATCH.TD24 TD SCH (09:28)
[2016-05-27] MEDS: DOCUSATE SODIUM 100 MG CAPSULE PO SCH ×2 (09:28→17:18)
[2016-05-27] MEDS: FLUTICASONE NASAL SPRAY 50 MCG/SPRY 120 SPRAY/16 GM NASL SCH ×2 (09:28→21:35)
--- NOTE | 2016-05-27 11:13 | PDOC PROGRESS REPORT ---
Subjective Progress Note for:: 05/27/16 Subjective:: Complains of pain in the right lateral abdominal wall Physical Exam Vital Signs: Temp Pulse Resp BP Pulse Ox 97.8 F 89 18 136/82 H 95 05/27/16 07:49 05/27/16 07:49 05/27/16 07:49 05/27/16 07:49 05/27/16 07:49 Intake & Output 05/26/16 05/27/16 05/28/16 06:59 06:59 06:59 Intake Total 3280 1270 Balance 3280 1270 Weight 104 kg General appearance: PRESENT: no acute distress Eye exam: PRESENT: conjunctiva pink. ABSENT: scleral icterus Mouth exam: PRESENT: moist, tongue midline Neck exam: ABSENT: JVD Respiratory exam: PRESENT: clear to auscultation neptali. ABSENT: rales, rhonchi, wheezes Cardiovascular exam: PRESENT: RRR. ABSENT: diastolic murmur, rubs, systolic murmur GI/Abdominal exam: PRESENT: normal bowel sounds, soft, tenderness - Tenderness over the right lateral abdominal wall.. ABSENT: distended, guarding, mass, organolmegaly, rebound Extremities exam: ABSENT: calf tenderness, clubbing, pedal edema Neurological exam: PRESENT: alert, awake, oriented to person, oriented to place , oriented to time, oriented to situation, CN II-XII grossly intact. ABSENT: motor sensory deficit Psychiatric exam: PRESENT: appropriate affect Skin exam: PRESENT: other - Right flank and right abdominal wall show a large hematoma present Results Laboratory Results: 05/27/16 06:28 05/26/16 06:35 05/27/16 06:28 WBC 7.9 RBC 3.37 L Hgb 11.2 L Hct 31.8 L MCV 94 MCH 33.2 MCHC 35.2 RDW 13.9 Plt Count 172 Seg Neutrophils % 54.4 Lymphocytes % 32.2 Monocytes % 8.3 Eosinophils % 4.8 Basophils % 0.3 Absolute Neutrophils 4.3 Absolute Lymphocytes 2.5 Absolute Monocytes 0.6 Absolute Eosinophils 0.4 Absolute Basophils 0.0 Impressions: Limited or Localized CT 05/24/16 19:26 IMPRESSION: Moderate inflammatory changes are present in the right lateral abdominal musculature as well as in the right lower quadrant and retroperitoneum , appears to be probable hemorrhage of uncertain etiology. Thickening of the right lateral abdominal wall musculature with focal thickening -hemorrhage above the level of the iliac crest. Correlate for history of trauma or recent procedure. Assessment & Plan - Diagnosis (1) Hematoma of muscle Is this a current diagnosis for this admission?: YesPlan: This is being managed conservatively by surgery (2) Hypertension Is this a current diagnosis for this admission?: YesPlan: This is made worse by her pain. Continue Toprol (3) URI (upper respiratory infection) Is this a current diagnosis for this admission?: Yes (4) Neurofibromatosis Is this a current diagnosis for this admission?: Yes (5) Hypokalemia Is this a current diagnosis for this admission?: YesPlan: We'll replace and continue to monitor - Time Time Spent with patient: 15-24 minutes - Inpatient Certification Medical Necessity: Need Close Monitoring Due to Risk of Patient Decompensation, Need for Pain Control
--- NOTE | 2016-05-27 11:32 | PROGRESS NOTE E ---
Progress Note NAME: MAXIMILIAN MCGHEE : 1965 AGE: 50Y DATE: 05/27/2016 ROOM: 532 SUBJECTIVE: Patient still requiring parenteral pain medications for pain in her intermuscular hematoma. She has a little bit more of ecchymosis along the right side and now down into the right lateral thigh. Her blood pressure is better controlled. PLAN: The plan is to switch her to p.o. pain medication later today and if tolerated, then possibly discharge in a.m. DICTATING PHYSICIAN: NAOMI TAYLOR M.D. [id number] PHY#: [id number] ID: [id number] JOB#: [id number] ACCT: [id number] cc: >
[2016-05-27] MEDS: POTASSIUM CHLORIDE 10 MEQ TABLET.SA PO SCH (21:35)
[2016-05-28] MEDS: HYDROMORPHONE HCL INJ/PF 2 MG/ML AMPULE IV PRN ×5 (00:16→23:08)
[2016-05-28] MEDS: LORAZEPAM 1 MG TABLET PO PRN ×3 (01:31→23:09)
[2016-05-28] MEDS ORDERED: HYDROMORPHONE HCL INJ/PF 2 MG/ML AMPULE ONE (01:55)
[2016-05-28 07:20] LABS: ABSOLUTE BASOPHILS # (AUTO) 0.1 10^3/uL (0.0-0.2); ABSOLUTE EOSINOPHILS # (AUTO) 0.3 10^3/uL (0.0-0.6); ABSOLUTE LYMPHOCYTES (AUTO) 2.4 10^3/uL (0.5-4.7); ABSOLUTE MONOCYTES (AUTO) 0.8 10^3/uL (0.1-1.4); ABSOLUTE NEUT (AUTO) 6.8 10^3/uL (1.7-8.2); BASOPHILS % (AUTO) 0.6 % (0-2); HEMATOCRIT 33.1 % (36.0-47.0); HEMOGLOBIN 11.6 g/dL (12.0-15.5); HGB HCT DIFFERENCE 1.7; LYMPHOCYTES % (AUTO) 23.6 % (13-45); MEAN CORPUSCULAR HEMOGLOBIN 33.3 pg (27.0-33.4); MEAN CORPUSCULAR VOLUME 95 fl (80-97); MONOCYTES % (AUTO) 7.3 % (3-13); RED BLOOD COUNT 3.48 10^6/uL (3.72-5.28); RED CELL DISTRIBUTION WIDTH 13.8 % (11.5-14.0); SEGMENTED NEUTROPHILS % (AUTO) 65.5 % (42-78); WHITE BLOOD COUNT 10.4 10^3/uL (4.0-10.5)
--- NOTE | 2016-05-28 08:42 | PDOC PROGRESS REPORT ---
Subjective Progress Note for:: 05/28/16 Subjective:: Feels better. Less pain. Physical Exam Vital Signs: Temp Pulse Resp BP Pulse Ox 97.3 F 90 20 124/72 97 05/27/16 23:27 05/27/16 23:27 05/28/16 04:00 05/27/16 23:27 05/27/16 23:27 Intake & Output 05/27/16 05/28/16 05/29/16 06:59 06:59 06:59 Intake Total 1270 880 Balance 1270 880 General appearance: PRESENT: no acute distress, cooperative Respiratory exam: PRESENT: clear to auscultation neptali Cardiovascular exam: PRESENT: RRR GI/Abdominal exam: PRESENT: other - Soft, nondistended, tenderness along the wide region of the bruising in the right lateral abdomen extending to flank but no erythema and no extension from the demarcated lines that was previously marked. The ecchymotic area is not tense. Results Laboratory Results: 05/28/16 06:33 05/28/16 06:33 05/28/16 05/28/16 06:33 06:33 WBC 10.4 RBC 3.48 L Hgb 11.6 L Hct 33.1 L MCV 95 MCH 33.3 MCHC 35.0 RDW 13.8 Plt Count 131 L Seg Neutrophils % 65.5 Lymphocytes % 23.6 Monocytes % 7.3 Eosinophils % 3.0 Basophils % 0.6 Absolute Neutrophils 6.8 Absolute Lymphocytes 2.4 Absolute Monocytes 0.8 Absolute Eosinophils 0.3 Absolute Basophils 0.1 Sodium Cancelled Potassium Cancelled Chloride Cancelled Carbon Dioxide Cancelled Anion Gap Cancelled BUN Cancelled Creatinine Cancelled Est GFR ( Amer) Cancelled Est GFR (Non-Af Amer) Cancelled Glucose Cancelled Calcium Cancelled Impressions: Limited or Localized CT 05/24/16 19:26 IMPRESSION: Moderate inflammatory changes are present in the right lateral abdominal musculature as well as in the right lower quadrant and retroperitoneum , appears to be probable hemorrhage of uncertain etiology. Thickening of the right lateral abdominal wall musculature with focal thickening -hemorrhage above the level of the iliac crest. Correlate for history of trauma or recent procedure. Assessment & Plan - Diagnosis (1) Spontaneous hematoma of abdominal wall Is this a current diagnosis for this admission?: YesPlan: Appears to have stopped as indicated by no further extension of the ecchymosis and the stabilization of her hematocrit. Requiring IV narcotics for pain control however. Hopefully pain subsides enough in the next couple of days so that we can discharge the patient home in the next couple of days.
[2016-05-28] MEDS: DIPHENHYDRAMINE HCL 50 MG CAPSULE PO PRN (08:59)
[2016-05-28] MEDS: OXYCODONE HCL IR 5 MG TABLET PO PRN ×2 (08:59→23:09)
[2016-05-28] MEDS: OXYCODONE-ACETAMINOPHEN 5-325 MG TABLET PO PRN ×2 (08:59→23:09)
[2016-05-28] MEDS: FAMOTIDINE 20 MG TABLET PO SCH ×2 (09:00→23:08)
[2016-05-28] MEDS: NICOTINE 14 MG/24 HR PATCH.TD24 TD SCH (09:00)
[2016-05-28] MEDS: DOCUSATE SODIUM 100 MG CAPSULE PO SCH ×2 (09:00→17:09)
[2016-05-28] MEDS: POTASSIUM CHLORIDE 10 MEQ TABLET.SA PO SCH ×2 (09:00→23:08)
[2016-05-28] MEDS: METOPROLOL SUCCINATE 50 MG TAB.SR.24H PO SCH (09:00)
[2016-05-28] MEDS: FLUTICASONE NASAL SPRAY 50 MCG/SPRY 120 SPRAY/16 GM NASL SCH ×2 (09:05→23:10)
--- NOTE | 2016-05-28 10:50 | PDOC PROGRESS REPORT ---
Subjective Progress Note for:: 05/28/16 Subjective:: Complains of pain in the right lateral abdominal wall Physical Exam Vital Signs: Temp Pulse Resp BP Pulse Ox 98.1 F 98 16 156/86 H 94 05/28/16 08:00 05/28/16 08:00 05/28/16 08:00 05/28/16 08:00 05/28/16 08:00 Intake & Output 05/27/16 05/28/16 05/29/16 06:59 06:59 06:59 Intake Total 1270 880 Balance 1270 880 General appearance: PRESENT: no acute distress Eye exam: PRESENT: conjunctiva pink. ABSENT: scleral icterus Mouth exam: PRESENT: moist, tongue midline Neck exam: ABSENT: JVD Respiratory exam: PRESENT: clear to auscultation neptali. ABSENT: rales, rhonchi, wheezes Cardiovascular exam: PRESENT: RRR. ABSENT: diastolic murmur, rubs, systolic murmur GI/Abdominal exam: PRESENT: normal bowel sounds, soft, tenderness - Right lateral wall tenderness. ABSENT: distended, guarding, mass, organolmegaly, rebound Extremities exam: ABSENT: calf tenderness, clubbing, pedal edema Neurological exam: PRESENT: alert, awake, oriented to person, oriented to place , oriented to time, oriented to situation, CN II-XII grossly intact. ABSENT: motor sensory deficit Psychiatric exam: PRESENT: appropriate affect Skin exam: PRESENT: other - Large hematoma on the right flank and right abdominal lateral wall. Unchanged from yesterday. Results Laboratory Results: 05/28/16 06:33 05/28/16 06:33 05/28/16 05/28/16 06:33 06:33 WBC 10.4 RBC 3.48 L Hgb 11.6 L Hct 33.1 L MCV 95 MCH 33.3 MCHC 35.0 RDW 13.8 Plt Count 131 L Seg Neutrophils % 65.5 Lymphocytes % 23.6 Monocytes % 7.3 Eosinophils % 3.0 Basophils % 0.6 Absolute Neutrophils 6.8 Absolute Lymphocytes 2.4 Absolute Monocytes 0.8 Absolute Eosinophils 0.3 Absolute Basophils 0.1 Sodium Cancelled Potassium Cancelled Chloride Cancelled Carbon Dioxide Cancelled Anion Gap Cancelled BUN Cancelled Creatinine Cancelled Est GFR ( Amer) Cancelled Est GFR (Non-Af Amer) Cancelled Glucose Cancelled Calcium Cancelled Impressions: Limited or Localized CT 05/24/16 19:26 IMPRESSION: Moderate inflammatory changes are present in the right lateral abdominal musculature as well as in the right lower quadrant and retroperitoneum , appears to be probable hemorrhage of uncertain etiology. Thickening of the right lateral abdominal wall musculature with focal thickening -hemorrhage above the level of the iliac crest. Correlate for history of trauma or recent procedure. Assessment & Plan - Diagnosis (1) Hematoma of muscle Is this a current diagnosis for this admission?: YesPlan: This is being managed conservatively by surgery (2) Hypertension Is this a current diagnosis for this admission?: YesPlan: This is made worse by her pain. Continue Toprol (3) URI (upper respiratory infection) Is this a current diagnosis for this admission?: Yes (4) Neurofibromatosis Is this a current diagnosis for this admission?: Yes (5) Hypokalemia Is this a current diagnosis for this admission?: YesPlan: We'll replace and continue to monitor - Time Time Spent with patient: 15-24 minutes - Inpatient Certification Medical Necessity: Need for Pain Control
[2016-05-28] MEDS ORDERED: CHLORPHENIRAMINE MALEATE 4 MG TABLET PO PRN (12:48)
[2016-05-29] MEDS: HYDROMORPHONE HCL INJ/PF 2 MG/ML AMPULE IV PRN ×2 (01:07→04:24)
[2016-05-29] MEDS: OXYCODONE HCL IR 5 MG TABLET PO PRN ×2 (03:36→09:21)
[2016-05-29] MEDS: LORAZEPAM 1 MG TABLET PO PRN (03:36)
[2016-05-29] MEDS: OXYCODONE-ACETAMINOPHEN 5-325 MG TABLET PO PRN (03:36)
[2016-05-29 06:51] VITALS: BP 153/91
[2016-05-29] MEDS: METOPROLOL SUCCINATE 50 MG TAB.SR.24H PO SCH (09:16)
[2016-05-29] MEDS: DOCUSATE SODIUM 100 MG CAPSULE PO SCH (09:16)
[2016-05-29] MEDS: POTASSIUM CHLORIDE 10 MEQ TABLET.SA PO SCH (09:16)
[2016-05-29] MEDS: FAMOTIDINE 20 MG TABLET PO SCH (09:16)
[2016-05-29] MEDS: NICOTINE 14 MG/24 HR PATCH.TD24 TD SCH (09:16)
[2016-05-29] MEDS: FLUTICASONE NASAL SPRAY 50 MCG/SPRY 120 SPRAY/16 GM NASL SCH (09:22)
--- NOTE | 2016-05-29 11:04 | DISCHARGE SUMMARY E ---
Discharge Summary NAME: MAXIMILIAN MCGHEE : 1965 AGE: 50Y ADMITTED: 05/25/2016 DISCHARGED: 05/29/2016 REASON FOR ADMISSION: Right flank hematoma. SUMMARY OF HOSPITALIZATION: The patient is a 50-year-old white female who presented to the emergency department with acute onset of abdominal pain localized to the right flank and back. She had been coughing for 4 days and the pain developed suddenly. She had a CAT scan of the abdomen and pelvis which showed inflammatory changes involving the right abdominal wall musculature consistent with recent hemorrhage. She was admitted to the surgicalist service for observation. Admission hemoglobin as 14.5. Over the ensuing days, it drifted down to 11.6, but remained stable. She developed ecchymosis consistent with evolution of the abdominal wall hematoma but no expansion of the process. She did not require any intervention. The patient had a lot of pain associated with this and it was managed with IV then oral medication. By the fourth hospital day, she was felt to be ready for discharge home. She was feeling poorly and had some concerns about going home. She was seen by the medicine service and because of concern of altered mentation, a CT scan of her head was performed and his was interpreted as normal. The patient's clinical condition improved. Discussion was held between the patient and her family about plans for discharge and she agreed to that. FINAL DIAGNOSES: 1. Abdominal wall hematoma with inflammatory changes secondary to spontaneous controlled without intervention. 2. History of neurofibromatosis. 3. Obesity. RECOMMENDATIONS: The patient will be discharged home to the care of her family. Follow up with the [facility] in approximately 1 to 2 weeks, take Percocet p.r.n. pain and Colace twice a day. DICTATING PHYSICIAN: ZIGGY CHANDRA M.D. [id number] PHY#: [id number] ID: [id number] JOB#: [id number] ACCT: [id number] cc:Naina MAYS M.D. >
== END 2016-05-29 11:03 | disposition home or self-care (01) | DRG 556 ==
LOC: ER 17:19 → UNDOADMIN 21:37 → EH 21:37 → 5 23:18 → EH 05-25 00:25 → 5 05-25 00:25
PROVIDERS: ADMIT Surgery; ATTEND Surgery
DX: M79.81 Nontraumatic hematoma of soft tissue (principal); Z68.41 Body mass index [BMI] 40.0-44.9, adult; E66.9 Obesity, unspecified; I10 Essential (primary) hypertension; M19.90 Unspecified osteoarthritis, unspecified site; F32.9 Major depressive disorder, single episode, unspecified; F17.210 Nicotine dependence, cigarettes, uncomplicated; E87.6 Hypokalemia; J06.9 Acute upper respiratory infection, unspecified; Z90.49 Acquired absence of other specified parts of digestive tract; Z90.710 Acquired absence of both cervix and uterus; Z79.899 Other long term (current) drug therapy; Z88.3 Allergy status to other anti-infective agents; Z82.49 Family history of ischemic heart disease and other diseases of the circulatory system
CPT/HCPCS: 36415; 70450; 76380; 80048; 80053; 81001; 82962; 83690; 85025; 85610; 85730; 86850; 86900; 86901; 94799; 99285; J0360; J1170; J1885; J2270; J7030

== ENCOUNTER 2018-12-03 11:37 | Emergency (ER) | payer OTHER ==
--- NOTE | 2018-12-03 11:56 | ER Document Report ---
ED Medical Screen (RME) - General Chief Complaint: Abdominal Pain Stated Complaint: ABDOMINAL PAIN Time Seen by Provider: 12/03/18 11:51 TRAVEL OUTSIDE OF THE [place] IN LAST 30 DAYS: No - HPI Notes: 12/03/18 11:53 Patient is a 53-year-old female with a history of neurofibromatosis and 3 abdominal hernias who presents complaining of pain to her mid abdominal hernia. Patient states that her hernias have been present for a year and half, but slowly growing since then. Patient states that she saw surgeon yesterday who does not want to do any surgery because she is overweight. She is urinating normally. Patient states that she is still having bowel movements, but has been constipated recently. No nausea or vomiting. No fever. I have treated and performed a rapid initial assessment of this patient. A comprehensive ED assessment and evaluation of the patient, analysis of test results and completion of medical decision making process will be conducted by additional ED providers. Pt is tachycardic on exam, no CP/SOB. Will obtain basic work up. PHYSICAL EXAMINATION: GENERAL: Well-appearing, well-nourished and in no acute distress. Abd: umbilical and ventral hernias noted. No erythema, induration. Seem reducible but limited exam in traige. - Related Data Allergies/Adverse Reactions: ciprofloxacin [From Cipro] Allergy (Unknown, Verified 12/03/18 11:47) Past Medical History - Past Medical History Cardiac Medical History: Reports: Hx Hypertension Renal/ Medical History: Denies: Hx Peritoneal Dialysis Musculoskeltal Medical History: Reports Hx Arthritis, Reports Hx Muscle Spasm Psychiatric Medical History: Reports: Hx Depression Past Surgical History: Reports: Hx Appendectomy, Hx Cholecystectomy, Hx Hysterectomy - Immunizations Hx Diphtheria, Pertussis, Tetanus Vaccination: Yes Physical Exam - Vital signs Vitals: Temp Pulse Resp BP Pulse Ox 98.3 F 120 H 18 208/124 H 96 12/03/18 11:47 12/03/18 11:47 12/03/18 11:47 12/03/18 11:47 12/03/18 11:47 Course - Vital Signs Vital signs: Temp Pulse Resp BP Pulse Ox 98.3 F 120 H 18 208/124 H 96 12/03/18 11:47 12/03/18 11:47 12/03/18 11:47 12/03/18 11:47 12/03/18 11:47
[2018-12-03 12:26] LABS: ABSOLUTE BASOPHILS # (AUTO) 0.1 10^3/uL (0.0-0.2); ABSOLUTE EOSINOPHILS # (AUTO) 0.4 10^3/uL (0.0-0.6); ABSOLUTE LYMPHOCYTES (AUTO) 3.7 10^3/uL (0.5-4.7); ABSOLUTE MONOCYTES (AUTO) 0.7 10^3/uL (0.1-1.4); ABSOLUTE NEUT (AUTO) 6.5 10^3/uL (1.7-8.2); BASOPHILS % (AUTO) 0.7 % (0-2); EOSINOPHILS % (AUTO) 3.2 % (0-6); HEMATOCRIT 52.1 % (36.0-47.0); HEMOGLOBIN 17.9 g/dL (12.0-15.5); LYMPHOCYTES % (AUTO) 32.6 % (13-45); MEAN CORPUSCULAR HEMOGLOBIN 32.5 pg (27.0-33.4); MEAN CORPUSCULAR HGB CONC 34.4 g/dL (32.0-36.0); MEAN CORPUSCULAR VOLUME 95 fl (80-97); MONOCYTES % (AUTO) 6.3 % (3-13); PLATELET COUNT 260 10^3/uL (150-450); RED BLOOD COUNT 5.51 10^6/uL (3.72-5.28); RED CELL DISTRIBUTION WIDTH 13.5 % (11.5-14.0); SEGMENTED NEUTROPHILS % (AUTO) 57.2 % (42-78); TOTAL CELLS COUNTED % (AUTO) 100 %; WHITE BLOOD COUNT 11.3 10^3/uL (4.0-10.5)
[2018-12-03 12:31] LABS: APPEARANCE,URINE SLIGHTLY-CLOUDY; BILIRUBIN,URINE NEGATIVE (NEGATIVE); COLOR,URINE YELLOW; GLUCOSE, URINE NEGATIVE (NEGATIVE); KETONES,URINE NEGATIVE (NEGATIVE); PROTEIN,URINE NEGATIVE (NEGATIVE); URINE SPECIFIC GRAVITY 1.019; UROBILINOGEN,URINE NEGATIVE mg/dL (<2.0)
--- NOTE | 2018-12-03 12:36 | RADIOLOGY REPORT (SQ) ---
EXAM DESCRIPTION: KUB/ABDOMEN (SINGLE VIEW) COMPLETED DATE/TIME: 12/03/2018 12:22 pm REASON FOR STUDY: abd pain COMPARISON: None. NUMBER OF VIEWS: One view. TECHNIQUE: Supine radiographic image of the abdomen acquired. LIMITATIONS: None. FINDINGS: BOWEL GAS PATTERN: Normal bowel gas pattern. No dilated loops. CALCIFICATIONS: No suspicious calcifications. SOFT TISSUES: No gross mass or suggestion of organomegaly. HARDWARE: None. BONES: No bone lesions or fracture. OTHER: No other significant finding. IMPRESSION: NO RADIOGRAPHIC EVIDENCE FOR ACUTE ABDOMINAL DISEASE. Reading location - IP/workstation name: [email or web address]
[2018-12-03 12:45] LABS: ALBUMIN 4.9 g/dL (3.5-5.0); ALKALINE PHOSPHATASE 104 U/L (38-126); ANION GAP 11 (5-19); ASPARTATE AMINO TRANSFERASE 32 U/L (14-36); BILIRUBIN,DIRECT 0.2 mg/dL (0.0-0.4); BILIRUBIN,TOTAL 0.6 mg/dL (0.2-1.3); BLOOD UREA NITROGEN 15 mg/dL (7-20); CALCIUM 10.8 mg/dL (8.4-10.2); CARBON DIOXIDE 29 mmol/L (22-30); CHLORIDE 99 mmol/L (98-107); GLUCOSE 118 mg/dL (75-110); POTASSIUM 3.8 mmol/L (3.6-5.0); TOTAL PROTEIN 8.3 g/dL (6.3-8.2)
[2018-12-03] MEDS ORDERED: NORMAL SALINE 1000 ML 1,000 ML IV ONE (14:15)
[2018-12-03] MEDS ORDERED: ONDANSETRON HCL INJ/PF 4 MG/2 ML SDV IV ONE (14:15)
[2018-12-03] MEDS ORDERED: HYDROMORPHONE HCL INJ/PF 2 MG/ML AMPULE IV ONE ×3 (14:15→18:34)
--- NOTE | 2018-12-03 15:41 | ER Document Report ---
ED General - General TRAVEL OUTSIDE OF THE [place] IN LAST 30 DAYS: No <NINA ZAIDI - Last Filed: 12/03/18 16:32> <MARIE ANDERS - Last Filed: 12/03/18 20:06> - General Chief Complaint: Abdominal Pain Stated Complaint: ABDOMINAL PAIN Time Seen by Provider: 12/03/18 11:51 Primary Care Provider: ROSI BERNABE MD [Primary Care Provider] - Follow up as needed Notes: 53-year-old female presents emergency department complaining of increasingly severe abdominal pain related to her abdominal hernias. Patient states that she saw a surgeon from [facility] in [place] yesterday and was told that she was "too fat" to have surgery. States that she was told to lose 100 pounds before she came back. Patient states that yesterday the surgeon pushed on her abdomen really aggressively and she is been having increasing pain since then. She does not think they were able to reduce the hernias there. Patient is aware that she has 2 hernias but states that she diagnosed a third hernia. States that since being seen yesterday she is been having increasing pain with occasional vomiting and that her pain worsens with food, it is always around the area of the hernia. Patient also states that the pain radiates to her right flank. No constipation or obstipation. No fevers, no blood in her vomit, no blood in her stool. (NINA ZAIDI) - Related Data Allergies/Adverse Reactions: ciprofloxacin [From Cipro] Allergy (Unknown, Verified 12/03/18 11:47) Past Medical History - General Information source: Patient - Social History Smoking Status: Current Every Day Smoker Frequency of alcohol use: None Drug Abuse: None Family History: Hypertension Patient has suicidal ideation: No Patient has homicidal ideation: No - Past Medical History Cardiac Medical History: Reports: Hx Hypertension Renal/ Medical History: Denies: Hx Peritoneal Dialysis Musculoskeletal Medical History: Reports Hx Arthritis, Reports Hx Muscle Spasm Psychiatric Medical History: Reports: Hx Depression Past Surgical History: Reports: Hx Appendectomy, Hx Cholecystectomy, Hx Hysterectomy - Immunizations Hx Diphtheria, Pertussis, Tetanus Vaccination: Yes <NINA ZAIDI - Last Filed: 12/03/18 16:32> Review of Systems - Review of Systems Constitutional: No symptoms reported Gastrointestinal: See HPI -: Yes All other systems reviewed and negative <NINA ZAIDI - Last Filed: 12/03/18 16:32> Physical Exam - Vital signs Interpretation: Hypertensive, Tachycardic <NINA ZAIDI - Last Filed: 12/03/18 16:32> - Vital signs Vitals: Temp Pulse Resp BP Pulse Ox 98.3 F 120 H 18 208/124 H 96 12/03/18 11:46 12/03/18 11:46 12/03/18 11:46 12/03/18 11:46 12/03/18 11:46 - Notes Notes: GENERAL: Alert, sitting in a chair, holding her abdomen, tearful and appears quite uncomfortable. HEAD: Normocephalic, atraumatic EYES: Pupils equal, round and reactive to light, extraocular movements intact. ENT: Oral mucosa moist, tongue midline. NECK: Full range of motion, supple, trachea midline. LUNGS: Clear to auscultation bilaterally, no wheezes, rales or rhonchi, no respiratory distress. HEART: Tachycardic rate and rhythm, no murmurs, gallops, rubs. ABDOMEN: Midline hernia superior to the umbilicus is moderate in size, firm, tender to palpation but able to be reduced with constant firm pressure. As soon as she sits up it immediately protrudes again. There is a second hernia noted at the superior aspect of the umbilicus, again tender to palpation but much more easily reduced. Bowel sounds are present in all 4 quadrants, I do not palpate a third hernia. EXTREMITIES: Moves all 4 extremities spontaneously, no edema, radial and dors al pedis pulses 2/4 bilaterally. No cyanosis. NEUROLOGICAL: Alert and oriented x3, normal speech. PSYCH: Tearful and anxious, appears quite frustrated with the process. SKIN: Warm, Dry, normal turgor, no rashes or lesions noted. (NINA ZAIDI) Course - Laboratory Result Diagrams: 12/03/18 11:59 12/03/18 11:59 <NINA ZAIDI - Last Filed: 12/03/18 16:32> - Laboratory Result Diagrams: 12/03/18 11:59 12/03/18 11:59 - Diagnostic Test Radiology reviewed: Reports reviewed <MARIE ANDERS - Last Filed: 12/03/18 20:06> - Re-evaluation Re-evalutation: 12/03/18 15:41 CBC shows leukocytosis 11.3 but her hemoglobin is also concentrated at 17.9, suspect this is partially from dehydration, CMP shows elevated calcium at 10.8 but otherwise unremarkable, lipase normal, urinalysis shows moderate blood but 0 RBCs, 2+ bacteria. It is somewhat contaminated with 11 squamous epithelial cells. KUB does not show any acute process however given how tender she has been I am going to proceed with a CAT scan of the abdomen and pelvis with IV and oral contrast due to her large degree of pain. If this is completely negative patient will likely be offered outpatient follow-up with a surgeon and an abdominal binder to help keep her hernias reduced. 12/03/18 16:32 Patient is just now starting to drink the oral contrast. Patient's case will be signed out to Dr. Marie Anders for results of CAT scan and final disposition. (NINA TAMAYO) 12/03/18 20:00 Care of this patient was turned over to me during my shift . In short this is a patient with known ventral hernias, who presents to the emergency department for evaluation with increased pain. She had blood work, KUB, that eventually oral and IV contrasted CT scan. CT scan revealed fat-containing hernias, no signs of significant strangulation. Serial abdominal exams on the patient remained tender, and her hernias are reducible. She was placed in a binder. She needs to follow-up with primary care and surgery. She voiced understanding and was discharged. (MARIE ANDERS) - Vital Signs Vital signs: Temp Pulse Resp BP Pulse Ox 97.6 F 92 18 185/111 H 95 12/03/18 18:31 12/03/18 18:31 12/03/18 18:31 12/03/18 18:31 12/03/18 18:31 - Laboratory Laboratory results interpreted by me: 12/03/18 12/03/18 12/03/18 11:59 11:59 11:59 WBC 11.3 H RBC 5.51 H Hgb 17.9 H Hct 52.1 H Glucose 118 H Calcium 10.8 H Total Protein 8.3 H Urine Blood MODERATE H - Diagnostic Test Radiology results interpreted by me: 12/03/18 20:03 KUB X-Ray 12/03/18 11:55 IMPRESSION: NO RADIOGRAPHIC EVIDENCE FOR ACUTE ABDOMINAL DISEASE. Abdomen/Pelvis CT 12/03/18 13:50 IMPRESSION: Fat containing supraumbilical, umbilical, and bilateral inguinal hernias. No bowel involvement or incarceration. (MARIE ANDERS) Discharge <NINA ZAIDI - Last Filed: 12/03/18 16:32> <MARIE ANDERS - Last Filed: 12/03/18 20:06> - Discharge Clinical Impression: Ventral hernia without obstruction or gangrene, Umbilical hernia without obstruction or gangrene Inguinal hernia Qualifiers: Obstruction and gangrene presence: without obstruction or gangrene Laterality: bilateral Condition: Stable Disposition: HOME, SELF-CARE Instructions: Abdominal Pain ([facility]), Hernia ([facility]), Umbilical Hernia ([facility]) Additional Instructions: Wear binder as instructed. Percocet as needed for severe pain. Please watch for, stay patient with this medication, you should add a stool softener if you take it regularly. Follow-up with your surgeon and primary care the next week. Return to the emergency department with worsening or new concerning symptoms of any sort. Referrals: ROSI BERNABE MD [Primary Care Provider] - Follow up as needed
[2018-12-03] MEDS ORDERED: HYDROMORPHONE HCL INJ/PF 2 MG/ML AMPULE ONE (16:43)
--- NOTE | 2018-12-03 18:42 | RADIOLOGY REPORT (SQ) ---
EXAM DESCRIPTION: CT ABD/PELVIS WITH IV ORAL COMPLETED DATE/TIME: 12/03/2018 6:22 pm REASON FOR STUDY: painful hernias COMPARISON: None. TECHNIQUE: CT scan of the abdomen and pelvis performed using helical scanning technique with dynamic intravenous contrast injection. No oral contrast. Images reviewed with lung, soft tissue, and bone windows. Reconstructed coronal and sagittal MPR images reviewed. Delayed images for evaluation of the urinary system also acquired. All images stored on PACS. All CT scanners at this facility use dose modulation, iterative reconstruction, and/or weight based d osing when appropriate to reduce radiation dose to as low as reasonably achievable (ALARA). [facility]: Dose Right [facility]: CareDose [facility]: Dose Right [facility]: Teradose 4D [facility]: Heyzap CONTRAST TYPE AND DOSE: contrast/concentration: Isovue 350.00 mg/ml; Total Contrast Delivered: 99.0 ml; Total Saline Delivered: 69.0 ml RENAL FUNCTION: BUN 15; creatinine 0.87 RADIATION DOSE: CT Rad equipment meets quality standard of care and radiation dose reduction techniq ues were employed. CTDIvol: 18.1 - 19.4 mGy. DLP: 1956 mGy-cm.. LIMITATIONS: None. FINDINGS: LOWER CHEST: No significant findings. No nodules or infiltrates. LIVER: Hepatic steatosis. Normal size. No masses. No dilated ducts. SPLEEN: Normal size. No focal lesions. PANCREAS: No masses. No significant calcifications. No adjacent inflammation or peripancreatic fluid collections. Pancreatic duct not dilated. GALLBLADDER: Surgically absent. ADRENAL GLANDS: No significant masses or asymmetry. RIGHT KIDNEY AND URETER: No solid masses. No significant calcifications. No hydronephrosis or hyd roureter. LEFT KIDNEY AND URETER: No solid masses. No significant calcifications. No hydronephrosis or hydr oureter. AORTA AND VESSELS: No aneurysm. No dissection. Renal arteries, SMA, celiac without stenosis. RETROPERITONEUM: No retroperitoneal adenopathy, hemorrhage or masses. BOWEL AND PERITONEAL CAVITY: No masses or inflammatory changes. No free fluid or peritoneal masses. APPENDIX: Surgically absent. PELVIS: Status post hysterectomy. No mass. No free fluid. Normal bladder. ABDOMINAL WALL: There is a fat containing supraumbilical hernia with a neck measuring on the order of 1.4 cm by 2.6 cm. There is a small fat containing umbilical hernia. Bilateral (left greater than r ight) fat containing inguinal hernias are present. BONES: No significant or acute findings. Incidental note is made of intraosseous hemangiomas involvi ng me T8, T10, T11, T12, L3, and L4 vertebral bodies. OTHER: No other significant finding. IMPRESSION: Fat containing supraumbilical, umbilical, and bilateral inguinal hernias. No bowel invo lvement or incarceration. TECHNICAL DOCUMENTATION: JOB ID: [id number] Quality ID # [id number]: Final reports with documentation of one or more dose reduction techniques (e.g., Au tomated exposure control, adjustment of the mA and/or kV according to patient size, use of iterative reconstruction technique) 2010 [employer]- All Rights Reserved Reading location - IP/workstation name: [email or web address]
[2018-12-03 20:30] VITALS: BP 184/119
== END 2018-12-03 20:30 | disposition home or self-care (01) ==
LOC: ER 11:37
DX: K43.9 Ventral hernia without obstruction or gangrene (principal); K42.9 Umbilical hernia without obstruction or gangrene; R10.9 Unspecified abdominal pain; F17.200 Nicotine dependence, unspecified, uncomplicated; I10 Essential (primary) hypertension
CPT/HCPCS: 36415; 83690; 85025; 80053; 81001; 74018; 74177; J1170; J2405; J7030; 96361; 96374; 96375; 96376; 99284

== ENCOUNTER 2019-01-02 19:54 | Inpatient (IN) | payer SELFPAY ==
--- NOTE | 2019-01-02 20:15 | ER Document Report ---
ED Medical Screen (RME) - General Chief Complaint: Abdominal Distention Stated Complaint: HERNIA TURNING BLUE Time Seen by Provider: 01/02/19 20:08 Primary Care Provider: ROSI BERNABE MD [Primary Care Provider] - Follow up as needed Mode of Arrival: Ambulatory Information source: Patient Notes: Patient is a 53-year-old female with multiple abdominal hernias presenting with worsening pain. Patient reports she went to her doctor today who thinks that hernias are incarcerated. Patient reports increased pain over the last several days. She states she has no insurance and has not been able to follow-up with surgery. Patient denies any fevers, nausea, vomiting or diarrhea. Exam: Large hernia noted in the periumbilical area and ventral area. I have greeted and performed a rapid initial assessment of this patient. A comprehensive ED assessment and evaluation of the patient, analysis of test results and completion of the medical decision making process will be conducted by additional ED providers. I have specifically instructed the patient or family members with the patient to immediately return to any nursing staff should anything change in the patient's condition or with their chief complaint. This medical record was dictated with voice recognizing software. There may be grammatical, syntax errors that are unintended. TRAVEL OUTSIDE OF THE [place] IN LAST 30 DAYS: No - Related Data Allergies/Adverse Reactions: ciprofloxacin [From Cipro] Allergy (Unknown, Verified 12/03/18 11:47) Past Medical History - Past Medical History Cardiac Medical History: Reports: Hx Hypertension Renal/ Medical History: Denies: Hx Peritoneal Dialysis Musculoskeltal Medical History: Reports Hx Arthritis, Reports Hx Muscle Spasm Psychiatric Medical History: Reports: Hx Depression Past Surgical History: Reports: Hx Appendectomy, Hx Cholecystectomy, Hx Hysterectomy - Immunizations Hx Diphtheria, Pertussis, Tetanus Vaccination: Yes Doctor's Discharge - Discharge Referrals: ROSI BERNABE MD [Primary Care Provider] - Follow up as needed
[2019-01-02 21:07] LABS: APPEARANCE,URINE CLEAR; BILIRUBIN,URINE NEGATIVE (NEGATIVE); COLOR,URINE COLORLESS; GLUCOSE, URINE NEGATIVE (NEGATIVE); KETONES,URINE NEGATIVE (NEGATIVE); PROTEIN,URINE NEGATIVE (NEGATIVE); URINE SPECIFIC GRAVITY 1.001; UROBILINOGEN,URINE NEGATIVE mg/dL (<2.0)
[2019-01-02 21:11] LABS: ABSOLUTE EOSINOPHILS # (AUTO) 0.3 10^3/uL (0.0-0.6); ABSOLUTE LYMPHOCYTES (AUTO) 3.5 10^3/uL (0.5-4.7); ABSOLUTE MONOCYTES (AUTO) 0.6 10^3/uL (0.1-1.4); BASOPHILS % (AUTO) 0.5 % (0-2); EOSINOPHILS % (AUTO) 3.1 % (0-6); HEMATOCRIT 47.4 % (36.0-47.0); HEMOGLOBIN 16.4 g/dL (12.0-15.5); LYMPHOCYTES % (AUTO) 37.3 % (13-45); MEAN CORPUSCULAR HEMOGLOBIN 32.8 pg (27.0-33.4); MEAN CORPUSCULAR HGB CONC 34.6 g/dL (32.0-36.0); MEAN CORPUSCULAR VOLUME 95 fl (80-97); MONOCYTES % (AUTO) 6.1 % (3-13); PLATELET COUNT 187 10^3/uL (150-450); RED BLOOD COUNT 4.99 10^6/uL (3.72-5.28); RED CELL DISTRIBUTION WIDTH 12.8 % (11.5-14.0); TOTAL CELLS COUNTED % (AUTO) 100 %; WHITE BLOOD COUNT 9.4 10^3/uL (4.0-10.5)
--- NOTE | 2019-01-02 21:16 | RADIOLOGY REPORT (SQ) ---
EXAM DESCRIPTION: RadLex: US ABDOMEN DOPPLER LIMITED CLINICAL HISTORY: 53 years Female, eval for incarcerated hernias COMPARISON: CT 12/03/2018 FINDINGS: Ultrasound the abdominal wall was performed. Superior to the umbilicus, there is a ventral hernia corresponding to hernia seen on recent CT. With the hernia sac, there is a small amount of fluid. This is new since the prior CT. Echogenicity in the hernia sac is consistent with fat herniation. There is no definite bowel signature. Note that the hernia also contains fat on the previous CT. IMPRESSION: Ventral hernia, as seen on 12/03/2018. There is fluid in the hernia sac, new since prior exam. There is no definite bowel involvement, although fat necrosis is a concern. CT would more reliably evaluate for bowel incarceration and/or necrosis.
[2019-01-02 21:27] LABS: ALBUMIN 4.4 g/dL (3.5-5.0); ALKALINE PHOSPHATASE 93 U/L (38-126); ANION GAP 9 (5-19); ASPARTATE AMINO TRANSFERASE 42 U/L (14-36); BILIRUBIN,DIRECT 0.2 mg/dL (0.0-0.4); BILIRUBIN,TOTAL 0.5 mg/dL (0.2-1.3); BLOOD UREA NITROGEN 9 mg/dL (7-20); CALCIUM 9.7 mg/dL (8.4-10.2); CARBON DIOXIDE 29 mmol/L (22-30); CHLORIDE 107 mmol/L (98-107); GLUCOSE 106 mg/dL (75-110); POTASSIUM 3.8 mmol/L (3.6-5.0); TOTAL PROTEIN 7.6 g/dL (6.3-8.2)
[2019-01-02] MEDS ORDERED: HYDROMORPHONE HCL INJ/PF 2 MG/ML AMPULE IV ONE (22:42)
[2019-01-02] MEDS ORDERED: ONDANSETRON HCL INJ/PF 4 MG/2 ML SDV IV ONE (22:42)
--- NOTE | 2019-01-02 22:44 | ER Document Report ---
ED GI/ - General Chief Complaint: Abdominal Pain Stated Complaint: HERNIA TURNING BLUE Time Seen by Provider: 01/02/19 20:08 Mode of Arrival: Ambulatory Notes: Patient is a 53-year-old female that comes emergency for chief complaint of being referred here by her primary care provider for a painful hernia. She states she has not eaten anything since exam this morning, she has known ventral, umbilical, and bilateral inguinal hernias, the ventral hernia has become much more tender over the past couple of days. She states she has had this reduced in the past but has never been this tender. She states that yeste rday she was vomiting but she has not been vomiting today. She denies fever. She states she is only having small bowel movements. She has had a cholecystectomy, appendectomy, and total hysterectomy. She is only treated for hypertension reportedly. TRAVEL OUTSIDE OF THE [place] IN LAST 30 DAYS: No - Related Data Allergies/Adverse Reactions: ciprofloxacin [From Cipro] Allergy (Unknown, Verified 12/03/18 11:47) Past Medical History - General Information source: Patient - Social History Smoking Status: Current Every Day Smoker Frequency of alcohol use: None Drug Abuse: None Lives with: Family Family History: Hypertension Patient has suicidal ideation: No Patient has homicidal ideation: No - Past Medical History Cardiac Medical History: Reports: Hx Hypertension Renal/ Medical History: Denies: Hx Peritoneal Dialysis Musculoskeletal Medical History: Reports Hx Arthritis, Reports Hx Muscle Spasm Psychiatric Medical History: Reports: Hx Depression Past Surgical History: Reports: Hx Appendectomy, Hx Cholecystectomy, Hx Hyster ectomy - Immunizations Hx Diphtheria, Pertussis, Tetanus Vaccination: Yes Review of Systems - Review of Systems Constitutional: No symptoms reported EENT: No symptoms reported Cardiovascular: No symptoms reported Respiratory: No symptoms reported Gastrointestinal: See HPI Genitourinary: No symptoms reported Female Genitourinary: No symptoms reported Musculoskeletal: No symptoms reported Skin: No symptoms reported Hematologic/Lymphatic: No symptoms reported Neurological/Psychological: No symptoms reported Physical Exam - Vital signs Vitals: Temp Pulse Resp BP 97.6 F 95 16 191/116 H 01/02/19 20:15 01/02/19 20:15 01/02/19 20:15 01/02/19 20:15 - Notes Notes: GENERAL: Alert, restless and uncomfortable HEAD: Normocephalic, atraumatic. EYES: Pupils equal, round, and reactive to light. Extraocular movements intact. ENT: Oral mucosa moist, tongue midline. Oropharynx unremarkable. Airway patent. NECK: Full range of motion. Supple. Trachea midline. LUNGS: Clear to auscultation bilaterally, no wheezes, rales, or rhonchi. No respiratory distress. HEART: Regular rate and rhythm. No murmur ABDOMEN: Large tender ventral hernia without erythema or induration, does not appear to be reducible. Small umbilical hernia, otherwise unremarkable abdomen. GENITOURINARY: Deferred EXTREMITIES: Moves all 4 extremities spontaneously. No edema, normal radial and dorsalis pedis pulses bilaterally. No cyanosis. BACK: no cervical, thoracic, lumbar midline tenderness. No saddle anesthesia, normal distal neurovascular exam. Moves all extremities in full range of motion. NEUROLOGICAL: Alert and oriented x3. Normal speech. Cranial nerves II through XII grossly intact. PSYCH: Somewhat anxious in appearance SKIN: Warm, dry, normal turgor. No rashes or lesions noted. Course - Re-evaluation Re-evalutation: Patient with a large ventral hernia with a lot of tenderness over the area. Patient can barely tolerate the area being pressed on but there is no erythema or induration to the area. She is hypertensive and uncomfortable. CBC, chemistry unremarkable. Lactic acid is not significantly elevated. Ultrasound showing fat-containing hernia with some fluid possibly which could mean fat necrosis. CT suggested. 01/02/19 22:50 Dr. Stevenson states he will come evaluate the patient. He did evaluate the patient. He does recommend admission for surgery, CAT scan, if the CAT scan is concerning I should call him back. CAT scan is not concerning but I did speak to Dr. Stevenson when he was passing and updated on the findings. Patient will be admitted to the surgical service pending surgery. Patient does state appreciation and agreement. - Vital Signs Vital signs: Temp Pulse Resp BP Pulse Ox 97.6 F 104 H 16 175/118 H 94 01/02/19 20:16 01/02/19 20:16 01/03/19 03:16 01/03/19 03:16 01/03/19 03:16 - Laboratory Result Diagrams: 01/02/19 21:00 01/02/19 21:00 Laboratory results interpreted by me: 01/02/19 01/02/19 21:00 21:00 Hgb 16.4 H Hct 47.4 H AST 42 H Discharge - Discharge Clinical Impression: Incarcerated hernia Abdominal pain Qualifiers: Abdominal location: generalized Qualified Code(s): R10.84 - Generalized abdominal pain Condition: Stable Disposition: ADMITTED INPATIENT Admitting Provider: Surgicalist Unit Admitted: Surgical Floor
[2019-01-02] MEDS ORDERED: NORMAL SALINE 1000 ML 1,000 ML IV PRN ×2 (22:59→23:27)
[2019-01-02] MEDS ORDERED: NORMAL SALINE 1000 ML 1,000 ML IV ONE (22:59)
[2019-01-02] MEDS ORDERED: ONDANSETRON HCL INJ/PF 4 MG/2 ML SDV IV PRN (23:27)
--- NOTE | 2019-01-02 23:27 | PDOC H&P ---
History of Present Illness Admission Date/PCP: 01/02/19 History of Present Illness: MAXIMILIAN MCGHEE is a 53 year old female with history of hypertension, cutaneous neurofibromatosis, who presents emergency room complaining of mid upper abdominal pain and periumbilical pain. She was seen emergency room 1 month ago with similar symptoms and a CAT scan of the abdomen/pelvis was done revealing a ventral hernia containing fat only. An ultrasound of the abdomen was done today revealing a ventral hernia containing fat and fluid concerning for possible fat necrosis. She reports no change of bowel functions, no nausea, vomiting, fever, or other systemic symptoms. Past Medical History Cardiac Medical History: Reports: Hypertension Musculoskeltal Medical History: Reports: Arthritis Psychiatric Medical History: Reports: Depression Past Surgical History Past Surgical History: Reports: Appendectomy, Cholecystectomy, Hysterectomy Social History Smoking Status: Current Every Day Smoker Family History Family History: Hypertension Parental Family History Reviewed: No Children Family History Reviewed: No Sibling(s) Family History Reviewed.: No Medication/Allergy Home Medications: Oxycodone HCl/Acetaminophen [Percocet 5-325 mg Tablet] 1 tab PO Q4H PRN #12 tablet 12/03/18 Allergies/Adverse Reactions: ciprofloxacin [From Cipro] Allergy (Unknown, Verified 12/03/18 11:47) Physical Exam Vital Signs: Temp Pulse Resp BP Pulse Ox 97.6 F 95 23 H 214/130 H 93 01/02/19 20:15 01/02/19 20:15 01/02/19 23:03 01/02/19 23:03 01/02/19 23:03 Intake & Output 01/01/19 01/02/19 01/03/19 06:59 06:59 06:59 Weight 102.058 kg General appearance: PRESENT: no acute distress Head exam: PRESENT: atraumatic, normocephalic Eye exam: PRESENT: EOMI Mouth exam: PRESENT: moist, neck supple Teeth exam: PRESENT: poor dentation Neck exam: PRESENT: full ROM Respiratory exam: PRESENT: clear to auscultation neptali Cardiovascular exam: PRESENT: RRR GI/Abdominal exam: PRESENT: hernia - Ventral hernia located in the mid upper abdomen and periumbilical area, hypoactive bowel sounds, soft, tenderness - In the mid upper abdomen with protruding mass tender on palpation, not reducible Rectal exam: PRESENT: deferred Extremities exam: PRESENT: full ROM Musculoskeletal exam: PRESENT: full ROM Neurological exam: PRESENT: alert, oriented to person Psychiatric exam: PRESENT: appropriate affect Skin exam: PRESENT: warm Results Laboratory Results: 01/02/19 21:00 01/02/19 21:00 01/02/19 01/02/19 01/02/19 20:25 21:00 21:00 WBC 9.4 RBC 4.99 Hgb 16.4 H Hct 47.4 H MCV 95 MCH 32.8 MCHC 34.6 RDW 12.8 Plt Count 187 Seg Neutrophils % 53.0 Sodium 145.0 Potassium 3.8 Chloride 107 Carbon Dioxide 29 Anion Gap 9 BUN 9 Creatinine 0.74 Est GFR ( Amer) > 60 Glucose 106 Calcium 9.7 Total Bilirubin 0.5 AST 42 H Alkaline Phosphatase 93 Total Protein 7.6 Albumin 4.4 Lipase 63.2 Urine Color COLORLESS Urine Appearance CLEAR Urine pH 7.0 Ur Specific [place] 1.001 Urine Protein NEGATIVE Urine Glucose (UA) NEGATIVE Urine Ketones NEGATIVE Urine Blood NEGATIVE Impressions: Abdomen Ultrasound 01/02/19 20:13 IMPRESSION: Ventral hernia, as seen on 12/03/2018. There is fluid in the hernia sac, new since prior exam. There is no definite bowel involvement, although fat necrosis is a concern. CT would more reliably evaluate for bowel incarceration and/or necrosis. Assessment & Plan - Diagnosis (1) fat containing ventral hernia Is this a current diagnosis for this admission?: Yes (2) Neurofibromatosis Is this a current diagnosis for this admission?: Yes - Plan Summary Plan Summary: Assessment: 53-year-old female with midline upper ventral hernia containing fat Ultrasound of the area site reveals the presence of fluid for is for possible fat necrosis CT scan abdomen pelvis pending Work within normal limit Physical exam significant for indurated mid upper abdominal mass nonreducible as per incarcerated ventral hernia Plan: Admit patient N.p.o. IV fluids Plan laparoscopic possible open ventral hernia repair with mesh tomorrow Procedure, risks, benefits, complications, risk after the patient, she understands all the above, her questions answered, she decides to proceed
[2019-01-02] MEDS ORDERED: FAMOTIDINE INJ/PF 20 MG/2 ML SDV IV ONE (23:45)
[2019-01-03] MEDS: ACETAMINOPHEN 1,000 MG/100 ML RTUPB IV SCH ×3 (00:16→14:20)
--- NOTE | 2019-01-03 00:25 | RADIOLOGY REPORT (SQ) ---
CLINICAL HISTORY: eval hernia. CREAT 0.74 COMPARISON: None. TECHNIQUE: CT ABDOMEN PELVIS WITH IV CONTRAST on 01/02/2019 10:59 PM BIOMEDICAL EQUIPMENT TECHNICIAN This exam was performed according to our departmental dose-optimization program, which includes automated exposure control, adjustment of the mA and/or kV according to patient size and/or use of iterative reconstruction technique. FINDINGS: Lower lungs are clear. Abdomen: Liver is enlarged and fatty in attenuation. There is a moderate supraumbilical midline fat-containing ventral hernia. There is a smaller left periumbilical fat-containing ventral hernia. There is no biliary dilatation. The pancreas and spleen are normal in appearance. The adrenal glands and kidneys are unremarkable. Abdominal aorta is normal in course and caliber without aneurysm. There is no free air. There is no retroperitoneal adenopathy. Pelvis: There is no bowel obstruction. Urinary bladder is unremarkable. There is no free fluid. Hysterectomy was performed. Appendix is not clearly seen. There is no pericecal inflammation. Skeleton: There are no acute osseous findings. No suspicious bony lesions. IMPRESSION: Moderate supraumbilical fat-containing abdominal wall hernia with a small left periumbilical fat-containing abdominal wall hernia.
[2019-01-03] MEDS ORDERED: HYDRALAZINE HCL INJ/PF 20 MG/1 ML SDV IV PRN ×2 (01:16→15:08)
[2019-01-03] MEDS ORDERED: NITROGLYCERIN 2% OINTMENT 1 GM PACKET TP ONE (01:17)
[2019-01-03] MEDS ORDERED: METOPROLOL TARTRATE PF/INJ 5 MG/5 ML SDV IV ONE (01:18)
--- NOTE | 2019-01-03 03:55 | PDOC CONSULTATION ---
Consultation Consult Date: 01/03/19 Attending physician:: CARMEN OLIVAS Provider Consulted: KALEB KILGORE Consult reason:: Hypertension History of Present Illness Admission Date/PCP: 01/02/19 23:49 Patient complains of: Abdominal pain History of Present Illness: MAXIMILIAN MCGHEE is a 53 year old female with history of neurofibromatosis, hypertension and tobacco dependence. She presents with abdominal pain prompting evaluation in the emergency department where a CT reveals a moderate supraumbilical fat-containing abdominal wall hernia. And uncontrolled blood pressure of 200 systolic. She is admitted by surgery. Patient admits pain denies recent change in medication regiment including lisinopril and atenolol. Past Medical History Cardiac Medical History: Reports: Hypertension Musculoskeltal Medical History: Reports: Arthritis Psychiatric Medical History: Reports: Depression, Tobacco Dependency Past Surgical History Past Surgical History: Reports: Appendectomy, Cholecystectomy, Hysterectomy Social History Information Source: Patient Smoking Status: Current Every Day Smoker Frequency of Alcohol Use: Rare Drugs: None - Advance Directive Resuscitation Status: Full Code Family History Family History: Hypertension Parental Family History Reviewed: Yes Children Family History Reviewed: Yes Sibling(s) Family History Reviewed.: Yes Medication/Allergy Home Medications: Oxycodone HCl/Acetaminophen [Percocet 5-325 mg Tablet] 1 tab PO Q4H PRN #12 tablet 12/03/18 Allergies/Adverse Reactions: ciprofloxacin [From Cipro] Allergy (Unknown, Verified 12/03/18 11:47) Review of Systems Constitutional: ABSENT: chills, fever(s), headache(s), weight gain, weight loss Eyes: ABSENT: visual disturbances Ears: ABSENT: hearing changes Cardiovascular: ABSENT: chest pain, dyspnea on exertion, edema, orthropnea, palpitations Respiratory: ABSENT: cough, hemoptysis Gastrointestinal: ABSENT: abdominal pain, constipation, diarrhea, hematemesis, hematochezia, nausea, vomiting Genitourinary: ABSENT: dysuria, hematuria Musculoskeletal: ABSENT: joint swelling Integumentary: ABSENT: rash, wounds Neurological: ABSENT: abnormal gait, abnormal speech, confusion, dizziness, focal weakness, syncope Psychiatric: ABSENT: anxiety, depression, homidical ideation, suicidal ideation Endocrine: ABSENT: cold intolerance, heat intolerance, polydipsia, polyuria Hematologic/Lymphatic: ABSENT: easy bleeding, easy bruising Physical Exam Vital Signs: Temp Pulse Resp BP Pulse Ox 97.6 F 95 16 175/118 H 94 01/02/19 20:15 01/02/19 20:15 01/03/19 03:16 01/03/19 03:16 01/03/19 03:16 Intake & Output 01/01/19 01/02/19 01/03/19 11:59 11:59 11:59 Intake Total 1100 Balance 1100 Weight 102.058 kg General appearance: PRESENT: cooperative, obese, severe distress, well- developed, well-nourished Head exam: PRESENT: atraumatic, normocephalic Eye exam: PRESENT: conjunctiva pink, EOMI, PERRLA. ABSENT: scleral icterus Ear exam: PRESENT: normal external ear exam Mouth exam: PRESENT: moist, tongue midline Neck exam: ABSENT: carotid bruit, JVD, lymphadenopathy, thyromegaly Respiratory exam: PRESENT: clear to auscultation neptali. ABSENT: rales, rhonchi, wheezes Cardiovascular exam: PRESENT: RRR. ABSENT: diastolic murmur, rubs, systolic murmur Pulses: PRESENT: normal dorsalis pedis pul Vascular exam: PRESENT: normal capillary refill GI/Abdominal exam: PRESENT: distended, hypoactive bowel sounds, normal bowel sounds, soft, tenderness. ABSENT: guarding, mass, organolmegaly, rebound Rectal exam: PRESENT: deferred Extremities exam: PRESENT: full ROM. ABSENT: calf tenderness, clubbing, pedal edema Neurological exam: PRESENT: alert, awake, oriented to person, oriented to place, oriented to time, oriented to situation, CN II-XII grossly intact. ABSENT: motor sensory deficit Psychiatric exam: PRESENT: appropriate affect, normal mood. ABSENT: homicidal ideation, suicidal ideation Skin exam: PRESENT: dry, intact, warm. ABSENT: cyanosis, rash Results Laboratory Results: 01/02/19 21:00 01/02/19 21:00 01/02/19 01/02/19 01/02/19 20:25 21:00 21:00 WBC 9.4 RBC 4.99 Hgb 16.4 H Hct 47.4 H MCV 95 MCH 32.8 MCHC 34.6 RDW 12.8 Plt Count 187 Seg Neutrophils % 53.0 Sodium 145.0 Potassium 3.8 Chloride 107 Carbon Dioxide 29 Anion Gap 9 BUN 9 Creatinine 0.74 Est GFR ( Amer) > 60 Glucose 106 Lactic Acid Calcium 9.7 Total Bilirubin 0.5 AST 42 H Alkaline Phosphatase 93 Total Protein 7.6 Albumin 4.4 Lipase 63.2 Urine Color COLORLESS Urine Appearance CLEAR Urine pH 7.0 Ur Specific [place] 1.001 Urine Protein NEGATIVE Urine Glucose (UA) NEGATIVE Urine Ketones NEGATIVE Urine Blood NEGATIVE 01/03/19 01:12 WBC RBC Hgb Hct MCV MCH MCHC RDW Plt Count Seg Neutrophils % Sodium Potassium Chloride Carbon Dioxide Anion Gap BUN Creatinine Est GFR ( Amer) Glucose Lactic Acid 2.2 H Calcium Total Bilirubin AST Alkaline Phosphatase Total Protein Albumin Lipase Urine Color Urine Appearance Urine pH Ur Specific [place] Urine Protein Urine Glucose (UA) Urine Ketones Urine Blood Impressions: Abdomen Ultrasound 01/02/19 20:13 IMPRESSION: Ventral hernia, as seen on 12/03/2018. There is fluid in the hernia sac, new since prior exam. There is no definite bowel involvement, although fat necrosis is a concern. CT would more reliably evaluate for bowel incarceration and/or necrosis. Abdomen/Pelvis CT 01/02/19 22:59 IMPRESSION: Moderate supraumbilical fat-containing abdominal wall hernia with a small left periumbilical fat-containing abdominal wall hernia. Assessment and Plan - Diagnosis (1) Hypertension Is this a current diagnosis for this admission?: Yes Plan: Optimize pain management, IV hydralazine, Lopressor, nitro as needed (2) Tobacco abuse Is this a current diagnosis for this admission?: Yes Plan: Nicotine replacement options discussed, cessation counseling performed (3) Abdominal pain Qualifiers: Abdominal location: generalized Qualified Code(s): R10.84 - Generalized abdominal pain Is this a current diagnosis for this admission?: Yes Plan: Secondary to hernia defer to surgery. - Time Time Spent with patient: 15-24 minutes - Inpatient Certification Medical Necessity: Need Close Monitoring Due to Risk of Patient Decompensation
[2019-01-03] MEDS ORDERED: SUCCINYLCHOLINE CHLORIDE INJ 200 MG/10 ML VIAL ONE (05:00)
[2019-01-03] MEDS ORDERED: ROCURONIUM BROMIDE INJ 50 MG/5 ML VIAL IV ONE (05:00)
[2019-01-03] MEDS ORDERED: BUPIVACAINE HCL 0.25 % INJ/PF (2.5 MG/1 ML) 30 ML VIAL ONE (08:16)
[2019-01-03 08:18] LABS: HEMATOCRIT 43.3 % (36.0-47.0); HEMOGLOBIN 14.9 g/dL (12.0-15.5); MEAN CORPUSCULAR HEMOGLOBIN 33.1 pg (27.0-33.4); MEAN CORPUSCULAR HGB CONC 34.5 g/dL (32.0-36.0); MEAN CORPUSCULAR VOLUME 96 fl (80-97); PLATELET COUNT 165 10^3/uL (150-450); RED BLOOD COUNT 4.52 10^6/uL (3.72-5.28); RED CELL DISTRIBUTION WIDTH 13.2 % (11.5-14.0)
[2019-01-03 08:39] LABS: ANION GAP 6 (5-19); BLOOD UREA NITROGEN 8 mg/dL (7-20); CALCIUM 8.8 mg/dL (8.4-10.2); CARBON DIOXIDE 27 mmol/L (22-30); CHLORIDE 108 mmol/L (98-107); GLUCOSE 101 mg/dL (75-110); POTASSIUM 3.8 mmol/L (3.6-5.0)
[2019-01-03] MEDS ORDERED: CEFAZOLIN INJ 1 GM VIAL ONE (08:46)
--- NOTE | 2019-01-03 08:47 | PDOC PROGRESS REPORT ---
Subjective Progress Note for:: 01/03/19 Subjective:: 53-year-old female with a painful, incarcerated, incisional ventral hernia. She reports her abdominal pain is 10 out of 10. She is requiring IV narcotics. She denies nausea, vomiting, fevers, chills, chest pain, shortness of breath. Reason For Visit: INCARCERATED VENATRAL HERNIA Physical Exam Vital Signs: Temp Pulse Resp BP Pulse Ox 97.9 F 104 H 16 159/92 H 96 01/03/19 08:26 01/03/19 08:26 01/03/19 08:26 01/03/19 08:26 01/03/19 08:26 Intake & Output 01/02/19 01/03/19 01/04/19 06:59 06:59 06:59 Intake Total 1100 Balance 1100 Weight 100.7 kg General appearance: PRESENT: no acute distress, cooperative, obese Head exam: PRESENT: atraumatic, normocephalic Eye exam: PRESENT: EOMI, PERRLA. ABSENT: scleral icterus Mouth exam: PRESENT: moist, neck supple Neck exam: ABSENT: tenderness, thyromegaly, tracheal deviation, tracheostomy Respiratory exam: PRESENT: clear to auscultation neptali, unlabored. ABSENT: chest wall tenderness, wheezes Cardiovascular exam: PRESENT: RRR Pulses: PRESENT: normal radial pulses Vascular exam: PRESENT: normal capillary refill GI/Abdominal exam: PRESENT: hernia - Incarcerated ventral incisional hernia, soft, tenderness Rectal exam: PRESENT: deferred Extremities exam: ABSENT: clubbing Musculoskeletal exam: ABSENT: deformity Neurological exam: PRESENT: alert, awake, oriented to person, oriented to place, oriented to time, oriented to situation, CN II-XII grossly intact. ABSENT: motor sensory deficit Psychiatric exam: ABSENT: agitated, anxious, depressed Focused psych exam: ABSENT: delusional Skin exam: ABSENT: cyanosis, erythema, jaundice Results Laboratory Results: 01/03/19 07:30 01/02/19 01/02/19 01/02/19 20:25 21:00 21:00 WBC 9.4 RBC 4.99 Hgb 16.4 H Hct 47.4 H MCV 95 MCH 32.8 MCHC 34.6 RDW 12.8 Plt Count 187 Seg Neutrophils % 53.0 Sodium 145.0 Potassium 3.8 Chloride 107 Carbon Dioxide 29 Anion Gap 9 BUN 9 Creatinine 0.74 Est GFR ( Amer) > 60 Glucose 106 Lactic Acid Calcium 9.7 Total Bilirubin 0.5 AST 42 H Alkaline Phosphatase 93 Total Protein 7.6 Albumin 4.4 Lipase 63.2 Urine Color COLORLESS Urine Appearance CLEAR Urine pH 7.0 Ur Specific [place] 1.001 Urine Protein NEGATIVE Urine Glucose (UA) NEGATIVE Urine Ketones NEGATIVE Urine Blood NEGATIVE 01/03/19 01/03/19 01:12 07:30 WBC 9.0 RBC 4.52 Hgb 14.9 Hct 43.3 MCV 96 MCH 33.1 MCHC 34.5 RDW 13.2 Plt Count 165 Seg Neutrophils % Sodium Potassium Chloride Carbon Dioxide Anion Gap BUN Creatinine Est GFR ( Amer) Glucose Lactic Acid 2.2 H Calcium Total Bilirubin AST Alkaline Phosphatase Total Protein Albumin Lipase Urine Color Urine Appearance Urine pH Ur Specific [place] Urine Protein Urine Glucose (UA) Urine Ketones Urine Blood Impressions: Abdomen Ultrasound 01/02/19 20:13 IMPRESSION: Ventral hernia, as seen on 12/03/2018. There is fluid in the hernia sac, new since prior exam. There is no definite bowel involvement, although fat necrosis is a concern. CT would more reliably evaluate for bowel incarceration and/or necrosis. Abdomen/Pelvis CT 01/02/19 22:59 IMPRESSION: Moderate supraumbilical fat-containing abdominal wall hernia with a small left periumbilical fat-containing abdominal wall hernia. Assessment & Plan - Diagnosis (1) Incarcerated incisional hernia Is this a current diagnosis for this admission?: Yes - Time Time Spent with patient: Less than 15 minutes - Plan Summary Plan Summary: This is a 53-year-old female with an incarcerated incisional ventral hernia. The patient is requiring intravenous narcotics due to pain. The patient has been offered repair, and she agreed to this. I have discussed with her at length the risks and benefits of surgery. I have encouraged her that due to her obesity and her smoking status, she is at increased risk for postoperative complications and hernia recurrence. The patient has expressed understanding of these risks. I have strongly encouraged her to lose weight and stop smoking after her hernia repair has been performed. She has expressed understanding. Informed consent was obtained for the patient. All of her questions were answered, to her satisfaction.
[2019-01-03] MEDS ORDERED: KETOROLAC TROMETHAMINE 60 MG/2 ML SDV ONE (09:00)
[2019-01-03] MEDS ORDERED: PROPOFOL INJ 200 MG/20 ML VIAL IV ONE (09:00)
[2019-01-03] MEDS ORDERED: DEXAMETHASONE SOD PHOSPHATE INJ 4 MG/1 ML VIAL ONE (09:00)
[2019-01-03] MEDS ORDERED: ONDANSETRON HCL INJ/PF 4 MG/2 ML SDV ONE (09:00)
[2019-01-03] MEDS ORDERED: FENTANYL CITRATE INJ/PF 100 MCG/2 ML AMPUL ONE (09:00)
[2019-01-03] MEDS ORDERED: MIDAZOLAM 2 MG/2 ML INJ ONE (09:00)
[2019-01-03] MEDS ORDERED: INFLUENZA QUAD (6MOS+) 2019-20 VAC 0.5 ML SYR IM ONE (09:52)
[2019-01-03] MEDS ORDERED: FAMOTIDINE INJ/PF 20 MG/2 ML SDV IV SCH (10:00)
[2019-01-03] MEDS ORDERED: MORPHINE SULFATE 10 MG/ML INJ ONE (10:16)
[2019-01-03] MEDS ORDERED: DIPHENHYDRAMINE HCL 50 MG/ML VIAL IV PRN (10:53)
[2019-01-03] MEDS ORDERED: PROMETHAZINE HCL INJ 25 MG/1 ML VIAL IV PRN ×2 (10:53)
[2019-01-03] MEDS ORDERED: OXYCODONE-ACETAMINOPHEN 5-325 MG TABLET PO PRN ×2 (10:53)
[2019-01-03] MEDS ORDERED: MEPERIDINE HCL/PF INJ 25 MG/1 ML DISP.SYRIN IV PRN (10:53)
[2019-01-03] MEDS ORDERED: MORPHINE SULFATE 10 MG/ML INJ IV PRN (10:53)
[2019-01-03] MEDS ORDERED: ONDANSETRON HCL INJ/PF 4 MG/2 ML SDV IV PRN (10:53)
[2019-01-03] MEDS ORDERED: FENTANYL CITRATE INJ/PF 100 MCG/2 ML AMPUL IV PRN ×3 (10:53)
[2019-01-03] MEDS ORDERED: SUGAMMADEX SODIUM 200 MG/2 ML SDV IV ONE (12:43)
--- NOTE | 2019-01-03 15:05 | Progress Note ---
Provider Note Provider Note: 01/03/2019 Patient seen today for brief postop follow-up concerning medical management. Patient has just returned from surgery. Reportedly pain medication is being judiciously used secondary to hypoxia.. We will treat hypertension as needed PRN. She was on lisinopril/HCTZ Toprol 30 mg every 12 hours prior to admission the hospital. Blood pressures are still running slightly high, will make sure the patient has parameters for hydralazine and resume her home medications as well.
--- NOTE | 2019-01-03 16:08 | Operative Report ---
Nonrecallable Operative Report DATE OF SURGERY: 01/03/19 PREOPERATIVE DIAGNOSIS: Incarcerated, ventral incisional hernia POSTOPERATIVE DIAGNOSIS: 1. Incarcerated, ventral, incisional, [place] cheese hernia. 2. Significant intra-abdominal adhesions OPERATION: 1. Robot-assisted laparoscopic lysis of adhesions including omentum, small bowel, and sigmoid colon. 2. Robot-assisted laparoscopic ventral, incisional, incarcerated, [place] cheese hernia repair with mesh. SURGEON: HARSHAL TORRES ANESTHESIA: GA TISSUE REMOVED OR ALTERED: None COMPLICATIONS: None apparent ESTIMATED BLOOD LOSS: Minimal PROCEDURE: Drains/implants: 20 x [address] hernia mesh. Procedure in detail: After informed consent was obtained, the patient was brought to the operating room and laid in the supine position. The area of the abdomen was prepped and draped in a normal, sterile fashion. An incision was created in the left upper quadrant. The camera was then inserted into the abdominal cavity using a 5 mm camera, 5 mm trocar, and the Optiview technique. This was done under direct laparoscopic visualization. Once the abdominal cavity was entered, there was found to be a large amount of adhesions in the left upper quadrant, left lower quadrant, and in the midline. With some difficulty, the left lower quadrant 8 mm robotic trocar as well as the left lateral 12 mm trocar were placed. The left upper quadrant 5 mm trocar was removed, and replaced with an 8 mm robotic trocar. The robot was then brought over the patient and docked appropriately. I then assumed my position at the surgeon's console. Next, lysis of adhesions was undertaken. There was a large amount of omental, small bowel, and sigmoid colon adhesions to the anterior abdominal wall. These were taken down using sharp dissection primarily. Judicious amounts of electrocautery were used when absolutely necessary. Once the lysis of adhesions was completed, attention was turned to reduction of the incarcerated hernia. There were 3 separate small incisional hernia defects. Reduction of the hernia contents were performed using sharp dissection and blunt dissection. All of the omental fat (which was incarcerated) was reduced back into the abdomen. Next, the preperitoneal fat was cleaned away from the anterior abdominal wall. Once this was completed the area between the defects was measured. It was found to be 15 cm in craniocaudal dimension. Secondary to this, a 25 x 20 cm ventral light hernia mesh would be necessary. The mesh was inserted into the abdomen. Next, attention was turned to closure of the defects. #1 V Lock Suture was used to close the midline defects in simple running fashion. 3 separate overlapping sutures were used. Once this was completed, the mesh was apposed to the anterior abdominal wall using the EPS. The mesh was sutured to the anterior abdominal wall using 2-0 nonabsorbable V lock suture. Once this was completed, a suture was used to secure the middle of the mesh to the midline fascia. After this was completed, the mesh was found to lie in good place. The sigmoid colon was inspected, and found to be free of any obvious damage from the lysis of adhesions. The robot was then undocked. I scrubbed back into the case. The left upper quadrant and left lower quadrant 8 mm trochar sites were closed using 0 Vicryl suture in simple interrupted fashion with the aid of the Mike-Glen device. The 12 mm trocar site was closed with 0 Vicryl suture in [id number] fashion with the aid of the Mike-Glen device. The overlying skin was then closed using 4-0 Vicryl Rapide suture in subcuticular fashion. Dressings were placed, and the procedure was concluded. All sponge, instrument, and needle counts were correct x2. Condition: Stable.
--- NOTE | 2019-01-03 16:17 | EKG REPORT ---
SEVERITY:- ABNORMAL ECG - SINUS TACHYCARDIA PROBABLE INFERIOR INFARCT, OLD PROLONGED QT INTERVAL : Confirmed by: Liudmila Bahena MD 03-Jan-2019 16:16:34
[2019-01-03] MEDS: LISINOPRIL 10 MG TABLET PO SCH (16:33)
[2019-01-03] MEDS: HYDROCODONE/ACETAMINOPHEN 10-325 MG TABLET PO PRN ×2 (16:33→22:44)
[2019-01-03] MEDS: KETOROLAC TROMETHAMINE INJ/PF 30 MG/1 ML SDV IV SCH (21:19)
[2019-01-03] MEDS: FAMOTIDINE 20 MG TABLET PO SCH (21:20)
[2019-01-04] MEDS: MORPHINE SULFATE 10 MG/ML INJ IV PRN ×2 (03:57→08:38)
[2019-01-04] MEDS: KETOROLAC TROMETHAMINE INJ/PF 30 MG/1 ML SDV IV SCH ×2 (07:18→13:02)
[2019-01-04] MEDS ORDERED: HYDROCHLOROTHIAZIDE 12.5 MG TABLET PO SCH (08:00)
--- NOTE | 2019-01-04 10:32 | PDOC PROGRESS REPORT ---
Subjective Progress Note for:: 01/04/19 Subjective:: The patient is complaining of incisional pain, no nausea, vomiting, positive flatus tolerating p.o. well Reason For Visit: INCARCERATED VENTRAL HERNIA,UNCONTROLLED Physical Exam Vital Signs: Temp Pulse Resp BP Pulse Ox 98.6 F 99 17 153/95 H 91 L 01/04/19 07:46 01/04/19 07:46 01/04/19 00:26 01/04/19 07:46 01/04/19 07:46 Intake & Output 01/03/19 01/04/19 01/05/19 06:59 06:59 06:59 Intake Total 1100 2300 Output Total 525 Balance 1100 1775 Weight 100.7 kg 100.7 kg General appearance: PRESENT: no acute distress Respiratory exam: PRESENT: clear to auscultation neptali Cardiovascular exam: PRESENT: RRR GI/Abdominal exam: PRESENT: hypoactive bowel sounds, soft, other - All incisions are clean, dry, and intact, with surrounding ecchymosis of the skin Results Laboratory Results: 01/03/19 07:30 01/03/19 07:30 Impressions: Abdomen Ultrasound 01/02/19 20:13 IMPRESSION: Ventral hernia, as seen on 12/03/2018. There is fluid in the hernia sac, new since prior exam. There is no definite bowel involvement, although fat necrosis is a concern. CT would more reliably evaluate for bowel incarceration and/or necrosis. Abdomen/Pelvis CT 01/02/19 22:59 IMPRESSION: Moderate supraumbilical fat-containing abdominal wall hernia with a small left periumbilical fat-containing abdominal wall hernia. Assessment & Plan - Diagnosis (1) fat containing ventral hernia Is this a current diagnosis for this admission?: Yes (2) Neurofibromatosis Is this a current diagnosis for this admission?: Yes - Time Time Spent with patient: 35 or more minutes - Plan Summary Plan Summary: Assessment: Postoperative day #1 following robotic assisted ventral hernia repair with mesh Vital signs stable patient afebrile Abdomen soft, slightly distended with bruising on the incisions No peritonitis identified on physical exam Plan: Discharge to home today Follow-up with Dr. Maya in the office in 2 weeks Advance diet as tolerated: I will suggest to remain with liquid diet for 1 to 2 days at advance to regular afterward Wear abdominal binder as necessary when out of bed Shower only, patient can base 2 weeks after surgery No wound care needed [place] 1 p.o. every 6 as needed for pain for 2 days, afterward the patient should start Tylenol 325 mg p.o. every 6 hours as needed for pain as well as Aleve 1 tab p.o. twice daily Apply ice packs or heating pad to wounds 30 minutes on and off as needed for pain Cade-hkt-romjrzj lidocaine skin patches apply as directed to painful skin wounds do not place patch directly on the wound
--- NOTE | 2019-01-04 10:51 | PDOC DISCHARGE SUMMARY ---
General - Admit/Disc Date/PCP Admission Date/Primary Care Provider: 01/03/19 12:53 Discharge Date: 01/04/19 - Discharge Diagnosis Final Diagnosis: Incarcerated ventral hernia x2 - Assessment Summary: The patient is a morbidly obese 53-year-old white female who presented to the emergency room on January 02, 2019 complaining of abdominal pain; on physical exam and on CAT scan that she had a large midline bulge which revealed revealed to be an incarcerated ventral hernia x2. She was admitted, kept n.p.o. and the following day she underwent a robotically assisted laparoscopic ventral herniorrhaphy with mesh x2. The procedure was well-tolerated. She was transferred to the floor. Her hospital course was unremarkable vital signs remained stable her diet was tolerated; on the day of discharge the patient had no complaints of except for incisional tenderness. Her vital sounds were stable physical exam, the abdomen soft but slightly distended, all incisions are clean dry intact with vitor-incisional ecchymosis, hypoactive bowel sounds. She was discharged to home on January 04, 2018; she was given a follow-up appoint with Dr. Maya in 2 weeks, shower only for 2 weeks then she can bathe, [place] 5/325 1 p.o. every 6 hours as needed for pain (#6 prescribed) followed by Tylenol and Aleve as needed for pain, ice packs or warm pads to the incisions 30 minutes on / off his needed for pain, [id number] lidocaine patches to be applied to the area near the incisionsfor pain control as needed hours on and off as per instructions. She was given a full liquid diet home to advance as tolerated, she was recommended to start MiraLAX 1-2 caps daily or milk of magnesia and to drink plenty of fluids to prevent constipation. - Additional Information Resuscitation Status: Full Code Discharge Diet: Full Liquids Discharge Activity: Activity As Tolerated, No Lifting Over 10 Pounds, Other - Wear a binder when out of bed Referrals: ROSI BERNABE MD [NO LOCAL MD] - Follow up as needed Home Medications: Lisinopril/Hydrochlorothiazide [Lisinopril-Hctz 10-12.5 mg Tab] 1 each PO DAILY 01/03/19 Metoprolol Tartrate [Lopressor 50 mg Tablet] 50 mg PO Q12 01/03/19 Tramadol HCl [Ultram 50 mg Tablet] 50 mg PO Q8HP PRN 01/03/19 History of Present Illiness History of Present Illness: MAXIMILIAN MCGHEE is a 53 year old female with history of hypertension, cutaneous neurofibromatosis, who presents emergency room complaining of mid upper abdominal pain and periumbilical pain. She was seen emergency room 1 month ago with similar symptoms and a CAT scan of the abdomen/pelvis was done revealing a ventral hernia containing fat only. An ultrasound of the abdomen was done today revealing a ventral hernia containing fat and fluid concerning for possible fat necrosis. She reports no change of bowel functions, no nausea, vomiting, fever, or other systemic symptoms. Physical Exam Vital Signs: Temp Pulse Resp BP Pulse Ox 98.6 F 99 17 153/95 H 91 L 01/04/19 07:46 01/04/19 07:46 01/04/19 00:26 01/04/19 07:46 01/04/19 07:46 Intake & Output 01/03/19 01/04/19 01/05/19 06:59 06:59 06:59 Intake Total 1100 2300 Output Total 525 Balance 1100 1775 Weight 100.7 kg 100.7 kg Results Laboratory Results: WBC 9.0 10^3/uL (4.0-10.5) 01/03/19 07:30 RBC 4.52 10^6/uL (3.72-5.28) 01/03/19 07:30 Hgb 14.9 g/dL (12.0-15.5) 01/03/19 07:30 Hct 43.3 % (36.0-47.0) 01/03/19 07:30 MCV 96 fl (80-97) 01/03/19 07:30 MCH 33.1 pg (27.0-33.4) 01/03/19 07:30 MCHC 34.5 g/dL (32.0-36.0) 01/03/19 07:30 RDW 13.2 % (11.5-14.0) 01/03/19 07:30 Plt Count 165 10^3/uL (150-450) 01/03/19 07:30 Lymph % (Auto) 37.3 % (13-45) 01/02/19 21:00 [place] % (Auto) 6.1 % (3-13) 01/02/19 21:00 Eos % (Auto) 3.1 % (0-6) 01/02/19 21:00 Baso % (Auto) 0.5 % (0-2) 01/02/19 21:00 Absolute Neuts (auto) 5.0 10^3/uL (1.7-8.2) 01/02/19 21:00 Absolute Lymphs (auto) 3.5 10^3/uL (0.5-4.7) 01/02/19 21:00 Absolute Monos (auto) 0.6 10^3/uL (0.1-1.4) 01/02/19 21:00 Absolute Eos (auto) 0.3 10^3/uL (0.0-0.6) 01/02/19 21:00 Absolute Basos (auto) 0.0 10^3/uL (0.0-0.2) 01/02/19 21:00 Seg Neutrophils % 53.0 % (42-78) 01/02/19 21:00 Sodium 140.5 mmol/L (137-145) 01/03/19 07:30 Potassium 3.8 mmol/L (3.6-5.0) 01/03/19 07:30 Chloride 108 mmol/L (98-107) H 01/03/19 07:30 Carbon Dioxide 27 mmol/L (22-30) 01/03/19 07:30 Anion Gap 6 (5-19) 01/03/19 07:30 BUN 8 mg/dL (7-20) 01/03/19 07:30 Creatinine 0.63 mg/dL (0.52-1.25) 01/03/19 07:30 Est GFR ( Amer) > 60 (>60) 01/03/19 07:30 Est GFR (MDRD) Non-Af > 60 (>60) 01/03/19 07:30 Glucose 101 mg/dL (75-110) 01/03/19 07:30 Lactic Acid 2.2 mmol/L (0.7-2.1) H 01/03/19 01:12 Calcium 8.8 mg/dL (8.4-10.2) 01/03/19 07:30 Total Bilirubin 0.5 mg/dL (0.2-1.3) 01/02/19 21:00 Direct Bilirubin 0.2 mg/dL (0.0-0.4) 01/02/19 21:00 Neonat Total Bilirubin Not Reportable 01/02/19 21:00 Neonat Direct Bilirubin Not Reportable 01/02/19 21:00 Neonat Indirect Bili Not Reportable 01/02/19 21:00 AST 42 U/L (14-36) H 01/02/19 21:00 ALT 36 U/L (<35) 01/02/19 21:00 Alkaline Phosphatase 93 U/L (38-126) 01/02/19 21:00 Total Protein 7.6 g/dL (6.3-8.2) 01/02/19 21:00 Albumin 4.4 g/dL (3.5-5.0) 01/02/19 21:00 Lipase 63.2 U/L (23-300) 01/02/19 21:00 Urine Color COLORLESS 01/02/19 20:25 Urine Appearance CLEAR 01/02/19 20:25 Urine pH 7.0 (5.0-9.0) 01/02/19 20:25 Ur Specific [place] 1.001 01/02/19 20:25 Urine Protein NEGATIVE mg/dL (NEGATIVE) 01/02/19 20:25 Urine Glucose (UA) NEGATIVE mg/dL (NEGATIVE) 01/02/19 20:25 Urine Ketones NEGATIVE mg/dL (NEGATIVE) 01/02/19 20:25 Urine Blood NEGATIVE (NEGATIVE) 01/02/19 20:25 Urine Nitrite (Reflex) NEGATIVE (NEGATIVE) 01/02/19 20:25 Urine Bilirubin NEGATIVE (NEGATIVE) 01/02/19 20:25 Urine Urobilinogen NEGATIVE mg/dL (<2.0) 01/02/19 20:25 Leukocyte Esterase Rfl NEGATIVE (NEGATIVE) 01/02/19 20:25 Urine Bacteria (Auto) TRACE /HPF 01/02/19 20:25 Urine WBC (Reflex) < 1 /HPF 01/02/19 20:25 Squamous Epi Cells Auto <1 /HPF 01/02/19 20:25 Urine Mucus (Auto) RARE /LPF 01/02/19 20:25 Urine Ascorbic Acid NEGATIVE (NEGATIVE) 01/02/19 20:25 Impressions: Abdomen Ultrasound 01/02/19 20:13 IMPRESSION: Ventral hernia, as seen on 12/03/2018. There is fluid in the hernia sac, new since prior exam. There is no definite bowel involvement, although fat necrosis is a concern. CT would more reliably evaluate for bowel incarceration and/or necrosis. Abdomen/Pelvis CT 01/02/19 22:59 IMPRESSION: Moderate supraumbilical fat-containing abdominal wall hernia with a small left periumbilical fat-containing abdominal wall hernia.
[2019-01-04] MEDS: LISINOPRIL 10 MG TABLET PO SCH (11:06)
[2019-01-04] MEDS: FAMOTIDINE 20 MG TABLET PO SCH (11:06)
[2019-01-04] MEDS: HYDROCODONE/ACETAMINOPHEN 10-325 MG TABLET PO PRN (11:10)
[2019-01-04 11:45] VITALS: BP 150/86
--- NOTE | 2019-01-04 11:54 | PDOC PROGRESS REPORT ---
Subjective Progress Note for:: 01/04/19 Reason For Visit: INCARCERATED VENTRAL HERNIA,UNCONTROLLED 01/04/2019 Patient seen for medical management Physical Exam Vital Signs: Temp Pulse Resp BP Pulse Ox 98.2 F 104 H 16 150/86 H 91 L 01/04/19 11:26 01/04/19 11:26 01/04/19 11:26 01/04/19 11:26 01/04/19 11:26 Intake & Output 01/03/19 01/04/19 01/05/19 06:59 06:59 06:59 Intake Total 1100 2300 Output Total 525 Balance 1100 1775 Weight 100.7 kg 100.7 kg General appearance: PRESENT: mild distress, other - Secondary to postop pain Respiratory exam: PRESENT: clear to auscultation neptali. ABSENT: rales, rhonchi, wheezes Cardiovascular exam: PRESENT: RRR. ABSENT: diastolic murmur, rubs, systolic murmur GI/Abdominal exam: PRESENT: other - deferred to general surgery Neurological exam: PRESENT: alert, awake, oriented to person, oriented to place, oriented to time, oriented to situation, CN II-XII grossly intact. ABSENT: motor sensory deficit Psychiatric exam: PRESENT: appropriate affect, normal mood. ABSENT: homicidal ideation, suicidal ideation Results Laboratory Results: 01/03/19 07:30 01/03/19 07:30 Impressions: Abdomen Ultrasound 01/02/19 20:13 IMPRESSION: Ventral hernia, as seen on 12/03/2018. There is fluid in the hernia sac, new since prior exam. There is no definite bowel involvement, although fat necrosis is a concern. CT would more reliably evaluate for bowel incarceration and/or necrosis. Abdomen/Pelvis CT 01/02/19 22:59 IMPRESSION: Moderate supraumbilical fat-containing abdominal wall hernia with a small left periumbilical fat-containing abdominal wall hernia. Assessment and Plan - Diagnosis (1) Abdominal pain Qualifiers: Abdominal location: generalized Qualified Code(s): R10.84 - Generalized abdominal pain Is this a current diagnosis for this admission?: Yes (2) Incarcerated hernia Is this a current diagnosis for this admission?: Yes (3) Hypertension Is this a current diagnosis for this admission?: Yes - Plan Summary Summary: The patient is a morbidly obese 53-year-old white female who presented to the emergency room on January 02, 2019 complaining of abdominal pain; on physical exam and on CAT scan that she had a large midline bulge which revealed revealed to be an incarcerated ventral hernia x2. She was admitted, kept n.p.o. and the following day she underwent a robotically assisted laparoscopic ventral herniorrhaphy with mesh x2. The procedure was well-tolerated. She was transferred to the floor. Her hospital course was unremarkable vital signs remained stable her diet was tolerated; on the day of discharge the patient had no complaints of except for incisional tenderness. Her vital sounds were stable physical exam, the abdomen soft but slightly distended, all incisions are clean dry intact with vitor-incisional ecchymosis, hypoactive bowel sounds. She was discharged to home on January 04, 2018; she was given a follow-up appoint with Dr. Maya in 2 weeks, shower only for 2 weeks then she can bathe, [place] 5/325 1 p.o. every 6 hours as needed for pain (#6 prescribed) followed by Tylenol and Aleve as needed for pain, ice packs or warm pads to the incisions 30 minutes on / off his needed for pain, [id number] lidocaine patches to be applied to the area near the incisionsfor pain control as needed hours on and off as per in structions. She was given a full liquid diet home to advance as tolerated, she was recommended to start MiraLAX 1-2 caps daily or milk of magnesia and to drink plenty of fluids to prevent constipation. 01/04/2019 She is vital signs through the night were stable afebrile temperature 98 pulse is down to 90 blood pressure stable 149/86, O2 sats in the low 90s on room air She appears to be hemodynamically stable. Safe to discharge home from the medical standpoint. General surgery hasl discharge patient today - Time Time Spent with patient: 15-24 minutes
== END 2019-01-04 13:41 | disposition home or self-care (01) | DRG 337 ==
LOC: ER 19:54 → EH 23:49 → 5 01-03 04:21 → OBSVTOIN 01-03 12:53
PROVIDERS: ATTEND Surgery
PROC: 0DNN4ZZ Release Sigmoid Colon, Percutaneous Endoscopic Approach (ICD-10-PCS; 2019-01-03)
PROC: 0DNU4ZZ Release Omentum, Percutaneous Endoscopic Approach (ICD-10-PCS; 2019-01-03)
PROC: 0DN84ZZ Release Small Intestine, Percutaneous Endoscopic Approach (ICD-10-PCS; 2019-01-03)
PROC: 8E0W4CZ Robotic Assisted Procedure of Trunk Region, Percutaneous Endoscopic Approach (ICD-10-PCS; 2019-01-03)
PROC: 0WUF4JZ Supplement Abdominal Wall with Synthetic Substitute, Percutaneous Endoscopic Approach (ICD-10-PCS; principal; 2019-01-03 09:15)
DX: K43.6 Other and unspecified ventral hernia with obstruction, without gangrene (principal); K66.0 Peritoneal adhesions (postprocedural) (postinfection); I10 Essential (primary) hypertension; F32.9 Major depressive disorder, single episode, unspecified; M19.90 Unspecified osteoarthritis, unspecified site; K40.20 Bilateral inguinal hernia, without obstruction or gangrene, not specified as recurrent; K42.9 Umbilical hernia without obstruction or gangrene; Z90.49 Acquired absence of other specified parts of digestive tract; Z90.710 Acquired absence of both cervix and uterus; F17.200 Nicotine dependence, unspecified, uncomplicated; E66.01 Morbid (severe) obesity due to excess calories; Q85.00 Neurofibromatosis, unspecified; Z88.1 Allergy status to other antibiotic agents
CPT/HCPCS: 36415; 74177; 752; 76705; 80048; 80053; 81001; 83605; 83690; 85025; 85027; 93005; 93010; 93976; 96361; 96365; 96375; 99285; C1781; G0378; J0131; J0330; J0360; J0690; J1100; J1170; J1885; J2250; J2270; J2405; J2704; J3010; J3490; J7030; S0028

== ENCOUNTER 2019-01-07 03:31 | Emergency (ER) | payer SELFPAY ==
[2019-01-07] MEDS ORDERED: HYDROMORPHONE HCL INJ/PF 2 MG/ML AMPULE IV ONE (04:01)
[2019-01-07 04:28] LABS: ABSOLUTE EOSINOPHILS # (AUTO) 0.3 10^3/uL (0.0-0.6); ABSOLUTE LYMPHOCYTES (AUTO) 1.7 10^3/uL (0.5-4.7); ABSOLUTE MONOCYTES (AUTO) 0.6 10^3/uL (0.1-1.4); ABSOLUTE NEUT (AUTO) 6.3 10^3/uL (1.7-8.2); BASOPHILS % (AUTO) 0.2 % (0-2); EOSINOPHILS % (AUTO) 3.1 % (0-6); HEMATOCRIT 35.6 % (36.0-47.0); HEMOGLOBIN 12.5 g/dL (12.0-15.5); LYMPHOCYTES % (AUTO) 19.5 % (13-45); MEAN CORPUSCULAR VOLUME 97 fl (80-97); MONOCYTES % (AUTO) 6.9 % (3-13); PLATELET COUNT 203 10^3/uL (150-450); RED BLOOD COUNT 3.67 10^6/uL (3.72-5.28); RED CELL DISTRIBUTION WIDTH 13.2 % (11.5-14.0); SEGMENTED NEUTROPHILS % (AUTO) 70.3 % (42-78); TOTAL CELLS COUNTED % (AUTO) 100 %; WHITE BLOOD COUNT 8.9 10^3/uL (4.0-10.5)
[2019-01-07 04:38] LABS: INTERNATIONAL RATION (INR) 0.93; PROTHROMBIN TIME 12.5 SEC (11.4-15.4)
[2019-01-07 04:52] LABS: ALBUMIN 3.9 g/dL (3.5-5.0); ALKALINE PHOSPHATASE 81 U/L (38-126); ANION GAP 7 (5-19); ASPARTATE AMINO TRANSFERASE 51 U/L (14-36); BILIRUBIN,DIRECT 0.2 mg/dL (0.0-0.4); BILIRUBIN,TOTAL 1.3 mg/dL (0.2-1.3); BLOOD UREA NITROGEN 9 mg/dL (7-20); CALCIUM 8.9 mg/dL (8.4-10.2); CARBON DIOXIDE 32 mmol/L (22-30); CHLORIDE 96 mmol/L (98-107); GLUCOSE 123 mg/dL (75-110); POTASSIUM 3.1 mmol/L (3.6-5.0); TOTAL PROTEIN 6.7 g/dL (6.3-8.2)
--- NOTE | 2019-01-07 05:11 | RADIOLOGY REPORT (SQ) ---
CT abdomen and pelvis with contrast on 01/07/2019 at 4:35 AM CLINICAL INDICATION: Generalized abdominal pain and bruising after recent ventral hernia repair three days ago TECHNIQUE: Multiple axial images are obtained throughout the abdomen and pelvis following the administration of IV contrast, 100 mL of Omnipaque 350 contrast was administered intravenously without complication. This exam was performed according to our departmental dose-optimization program, which includes automated exposure control, adjustment of the mA and/or kV according to patient size and/or use of iterative reconstruction technique. Total DLP is 2126.23 mGy*cm. COMPARISON: 01/03/2019 FINDINGS: Abdomen: There is mild right greater than left basilar atelectasis. Subcutaneous emphysema is noted in the abdomen and pelvis consistent with recent likely laparoscopic surgery. Small amount of free intraperitoneal air is noted in the abdomen also consistent with the patient's recent surgery. The patient is status post cholecystectomy. There is fatty infiltration of the liver. Solid abdominal organs are otherwise unremarkable. There is no abdominal adenopathy. Postsurgical changes from recent anterior abdominal wall hernia repair is noted. No evidence of residual or recurrent hernia is noted. There is a small postoperative air and fluid collection in the midline upper anterior abdominal wall subcutaneous tissues most consistent with small postoperative seroma likely seen best on axial image 43 of series 3. There is some expected stranding in the abdomen consistent with the recent surgery. The abdominal portion of the GI tract is unremarkable. Pelvis: The patient is status post hysterectomy. Very small amount of high density fluid in the pelvis is consistent with a small amount of hemoperitoneum that is likely postoperative in nature. There is no pelvic adenopathy. Pelvic portion of the GI tract is unremarkable. Degenerative changes are noted in the spine. IMPRESSION: 1. Essentially expected postoperative changes in the abdomen and pelvis from the recent hernia repair without definite complication noted. 2. Fatty infiltration of the liver.
[2019-01-07] MEDS ORDERED: NORMAL SALINE 1000 ML 1,000 ML IV ONE (05:17)
[2019-01-07 06:01] LABS: APPEARANCE,URINE CLEAR; BILIRUBIN,URINE NEGATIVE (NEGATIVE); COLOR,URINE YELLOW; GLUCOSE, URINE NEGATIVE (NEGATIVE); KETONES,URINE NEGATIVE (NEGATIVE); LEUKOCYTE ESTERASE,URINE NEGATIVE (NEGATIVE); NITRITE,URINE NEGATIVE (NEGATIVE); PROTEIN,URINE NEGATIVE (NEGATIVE)
[2019-01-07 06:02] LABS: URINE SPECIFIC GRAVITY > 1.060
[2019-01-07] MEDS ORDERED: POTASSIUM CHLORIDE 10 MEQ CAPSULE.ER PO ONE (06:04)
--- NOTE | 2019-01-07 06:12 | ER Document Report ---
ED GI/ - General Chief Complaint: Post Surgical Pain Stated Complaint: POST OP ABDOMINAL PAIN Time Seen by Provider: 01/07/19 04:00 Primary Care Provider: ROSI BERNABE MD [Primary Care Provider] - Follow up as needed Notes: Pt. is a morbidly obese 53 y/o female presents to the ED for continued abd pain s/p recent surgery. Stated she underwent a ventral hernia repair by Dr. Peterson on 01/03/2019. Stated she was released that night with "only 6 pain pills, and they were only 5s," meaning 5mg tabs. States she re-presented to the surgery center on for continued pain and was then given, "a few 10s," meaning 10 mg Norcos. Pt. voices the bruising over her abdomen has gotten worse since post op apt. on 01/05/2019. States the bruising has extended to her left hip more so in the last 24 hours. Patient's denying any trauma or injury. Patients complaining of generalized lower abdominal pain, sharp and "burning" in nature. Patient's denying any fevers or dysuria. TRAVEL OUTSIDE OF THE [place] IN LAST 30 DAYS: No - Related Data Allergies/Adverse Reactions: ciprofloxacin [From Cipro] Allergy (Unknown, Verified 12/03/18 11:47) Home Medications: norco 10mg q4 as needed. lisinopril/hctz. motrin 800mg tid as needed Past Medical History - General Information source: Patient - Social History Smoking Status: Current Every Day Smoker Chew tobacco use (# tins/day): No Frequency of alcohol use: None Drug Abuse: None Family History: Hypertension Patient has suicidal ideation: No Patient has homicidal ideation: No - Past Medical History Cardiac Medical History: Reports: Hx Hypertension Renal/ Medical History: Denies: Hx Peritoneal Dialysis Musculoskeletal Medical History: Reports Hx Arthritis, Reports Hx Muscle Spasm Psychiatric Medical History: Reports: Hx Depression Past Surgical History: Reports: Hx Abdominal Surgery - 01/04/19 hernia repair, Hx Appendectomy, Hx Cholecystectomy, Hx Hysterectomy - Immunizations Hx Diphtheria, Pertussis, Tetanus Vaccination: Yes Review of Systems - Review of Systems Constitutional: denies: Fever EENT: No symptoms reported Cardiovascular: No symptoms reported Respiratory: No symptoms reported Gastrointestinal: See HPI Genitourinary: See HPI Female Genitourinary: No symptoms reported Musculoskeletal: No symptoms reported Skin: See HPI Hematologic/Lymphatic: No symptoms reported Neurological/Psychological: No symptoms reported Physical Exam - Vital signs Vitals: Temp Pulse Resp BP Pulse Ox 98.5 F 111 H 20 157/107 H 94 01/07/19 03:35 01/07/19 03:35 01/07/19 03:35 01/07/19 03:35 01/07/19 03:35 - Notes Notes: GENERAL: Alert, interacts well. Grimacing, holding lower abdomen. HEAD: Normocephalic, atraumatic. EYES: Pupils equal, round, and reactive to light. Extraocular movements intact. ENT: Oral mucosa moist, tongue midline. NECK: Full range of motion. Supple. Trachea midline. LUNGS: Clear to auscultation bilaterally, no wheezes, rales, or rhonchi. No respiratory distress. HEART: Regular rate and rhythm. No murmur ABDOMEN: Soft, generalized tenderness noted right and left lower quadrants. Extensive bruising in different stages of healing noted lower abdomen and left hip. Non-distended. Bowel sounds present in all 4 quadrants. EXTREMITIES: Moves all 4 extremities spontaneously. No edema, normal radial and dorsalis pedis pulses bilaterally. No cyanosis. BACK: no cervical, thoracic, lumbar midline tenderness. No saddle anesthesia, normal distal neurovascular exam. NEUROLOGICAL: Alert and oriented x3. Normal speech. cranial nerves II through XII grossly intact PSYCH: Normal affect, normal mood. SKIN: Warm, dry, normal turgor. Course - Re-evaluation Re-evalutation: Patient presents to the emergency department for postoperative pain. States the pain has been severe ever since she left the hospital. States the pain got more severe this evening which is why she presents to the emergency room. Patient voices a bruising noted to her abdomen has been since surgery. [facility] surgery center did see her on for evaluation. Patient patient's presentation holding her lower abdomen, grimacing, screaming out in pain upon palpation of the lower quadrants I have opted for CT imaging and treatment with Dilaudid at this time. Patient continues to deny being on any blood thinners to include Coumadin, aspirin. Laboratory 01/07/19 01/07/19 01/07/19 04:15 04:15 04:15 WBC 8.9 RBC 3.67 L Hgb 12.5 Hct 35.6 L MCV 97 MCH 34.0 H MCHC 35.0 RDW 13.2 Plt Count 203 Lymph % (Auto) 19.5 [place] % (Auto) 6.9 Eos % (Auto) 3.1 Baso % (Auto) 0.2 Absolute Neuts (auto) 6.3 Absolute Lymphs (auto) 1.7 Absolute Monos (auto) 0.6 Absolute Eos (auto) 0.3 Absolute Basos (auto) 0.0 Seg Neutrophils % 70.3 PT 12.5 INR 0.93 Sodium 135.1 L Potassium 3.1 L Chloride 96 L Carbon Dioxide 32 H Anion Gap 7 BUN 9 Creatinine 0.56 Est GFR ( Amer) > 60 Est GFR (MDRD) Non-Af > 60 Glucose 123 H Lactic Acid Calcium 8.9 Total Bilirubin 1.3 Direct Bilirubin 0.2 Neonat Total Bilirubin Not Reportable Neonat Direct Bilirubin Not Reportable Neonat Indirect Bili Not Reportable AST 51 H ALT 41 Alkaline Phosphatase 81 Total Protein 6.7 Albumin 3.9 Lipase < 10.0 L Urine Color Urine Appearance Urine pH Ur Specific [place] Urine Protein Urine Glucose (UA) Urine Ketones Urine Blood Urine Nitrite Urine Bilirubin Urine Urobilinogen Ur Leukocyte Esterase Urine WBC (Auto) Urine RBC (Auto) Squamous Epi Cells Auto Urine Mucus (Auto) Urine Ascorbic Acid 01/07/19 01/07/19 04:50 05:48 WBC RBC Hgb Hct MCV MCH MCHC RDW Plt Count Lymph % (Auto) [place] % (Auto) Eos % (Auto) Baso % (Auto) Absolute Neuts (auto) Absolute Lymphs (auto) Absolute Monos (auto) Absolute Eos (auto) Absolute Basos (auto) Seg Neutrophils % PT INR Sodium Potassium Chloride Carbon Dioxide Anion Gap BUN Creatinine Est GFR ( Amer) Est GFR (MDRD) Non-Af Glucose Lactic Acid 1.0 Calcium Total Bilirubin Direct Bilirubin Neonat Total Bilirubin Neonat Direct Bilirubin Neonat Indirect Bili AST ALT Alkaline Phosphatase Total Protein Albumin Lipase Urine Color YELLOW Urine Appearance CLEAR Urine pH 6.0 Ur Specific [place] > 1.060 Urine Protein NEGATIVE Urine Glucose (UA) NEGATIVE Urine Ketones NEGATIVE Urine Blood NEGATIVE Urine Nitrite NEGATIVE Urine Bilirubin NEGATIVE Urine Urobilinogen 2.0 H Ur Leukocyte Esterase NEGATIVE Urine WBC (Auto) 1 Urine RBC (Auto) 0 Squamous Epi Cells Auto 6 Urine Mucus (Auto) RARE Urine Ascorbic Acid NEGATIVE Abdomen/Pelvis CT 11/16/19 04:01 IMPRESSION: 1. Essentially expected postoperative changes in the abdomen and pelvis from the recent hernia repair without definite complication noted. 2. Fatty infiltration of the liver. I have gone to discuss CT images with patient at bedside. She is sleeping, easily arousable to verbal stimuli. Voices she feels "so much better." Then asks for another dose of pain medication. I have asked my attending Dr. Cuenca to evaluate the pt at bedside based on the extensive bruising noted to abd and left hip region. He is recommending I speak with surgery, Dr. Peterson. Dr. Peterson stated that the pt. had extensive bruising noted at the visit on 01/05/2019. States he did give her a large amount of hydrocodone at that visit. States she is supposed to be taking Motrin and applying ice. States she can follow-up in his office for continued care. I discussed with patient at bedside she should follow-up with surgery this morning. Patient voices she is not taking the Motrin as it "upsets my stomach." She is also not applying ice. I have discussed with her surgeons recommendations. I have again reiterated the importance of following up with surgery this morning. Patient hemodynamically stable, stable for discharge. - Vital Signs Vital signs: Temp Pulse Resp BP Pulse Ox 98.5 F 111 H 11 L 167/87 H 95 01/07/19 03:35 01/07/19 03:35 01/07/19 06:01 01/07/19 06:01 01/07/19 06:01 - Laboratory Result Diagrams: 01/07/19 04:15 01/07/19 04:15 Laboratory results interpreted by me: 01/07/19 01/07/19 01/07/19 04:15 04:15 05:48 RBC 3.67 L Hct 35.6 L MCH 34.0 H Sodium 135.1 L Potassium 3.1 L Chloride 96 L Carbon Dioxide 32 H Glucose 123 H AST 51 H Lipase < 10.0 L Urine Urobilinogen 2.0 H Discharge - Discharge Clinical Impression: Abdominal pain Qualifiers: Abdominal location: lower abdomen, unspecified Qualified Code(s): R10.30 - Lower abdominal pain, unspecified Condition: Stable Disposition: HOME, SELF-CARE Instructions: Abdominal Pain ([facility]) Additional Instructions: As we discussed you have been seen and treated in the emergency department for your postoperative pain. I have spoken with surgeon Dr. Maya. He would like you to continue the pain medication he has prescribed. You can also take Motrin or ibuprofen every 6 hours. He should also be applying ice to your abdomen 20 minutes on, 20 minutes off. Please make sure you follow-up with Dr. Maya's office this morning. Return to the emergency department for any concerns. Referrals: ROSI BERNABE MD [Primary Care Provider] - Follow up as needed HARSHAL MAYA MD [ACTIVE STAFF] - Follow up as needed
[2019-01-07 07:03] VITALS: BP 151/86
== END 2019-01-07 07:16 | disposition home or self-care (01) ==
LOC: ER 03:31
DX: R10.30 Lower abdominal pain, unspecified (principal); G89.18 Other acute postprocedural pain; R10.84 Generalized abdominal pain; Z79.899 Other long term (current) drug therapy; F17.200 Nicotine dependence, unspecified, uncomplicated; I10 Essential (primary) hypertension
CPT/HCPCS: 36415; 83605; 83690; 85025; 85610; 80053; 81001; 74177; J1170; J7030; 96361; 96374; 99284

== ENCOUNTER 2019-01-31 13:58 | Emergency (ER) | payer SELFPAY ==
--- NOTE | 2019-01-31 14:12 | ER Document Report ---
ED Medical Screen (RME) - General Chief Complaint: Abdominal Pain Stated Complaint: ABD PAIN, SWELLING/POST HERNIA SURGERY Time Seen by Provider: 01/31/19 14:05 Primary Care Provider: ROSI BERNABE MD [Primary Care Provider] - Follow up as needed Mode of Arrival: Ambulatory Information source: Patient Notes: 53-year-old female presented to ED for complaint of postop abdominal pain. She states she just saw Dr. Maya the surgeon about 15 to 20 minutes ago and he sent her to the emergency room. Patient says that he told her he was going to probably have to admit her due to the abdominal distention and pain. Her surgery was January 03 for hernia repairs x4 the abdomen. She stated that he wanted a blood and urine with possible CAT scan it may be a scope. Patient is alert oriented respirations regular nonlabored speaking in full sentences. She does look uncomfortable at this time. I have greeted and performed a rapid initial assessment of this patient. A comprehensive ED assessment and evaluation of the patient, analysis of test results and completion of medical decision making process will be conducted by an additional ED providers. TRAVEL OUTSIDE OF THE [place] IN LAST 30 DAYS: No - Related Data Allergies/Adverse Reactions: ciprofloxacin [From Cipro] Allergy (Unknown, Verified 12/03/18 11:47) Past Medical History - Past Medical History Cardiac Medical History: Reports: Hx Hypertension Renal/ Medical History: Denies: Hx Peritoneal Dialysis Musculoskeltal Medical History: Reports Hx Arthritis, Reports Hx Muscle Spasm Psychiatric Medical History: Reports: Hx Depression Past Surgical History: Reports: Hx Abdominal Surgery - 01/04/19 hernia repair, Hx Appendectomy, Hx Cholecystectomy, Hx Hysterectomy - Immunizations Hx Diphtheria, Pertussis, Tetanus Vaccination: Yes Doctor's Discharge - Discharge Referrals: ROSI BERNABE MD [Primary Care Provider] - Follow up as needed
[2019-01-31] MEDS ORDERED: NORMAL SALINE 1000 ML 1,000 ML IV ONE (14:13)
[2019-01-31 14:46] LABS: APPEARANCE,URINE CLEAR; BILIRUBIN,URINE NEGATIVE (NEGATIVE); COLOR,URINE STRAW; GLUCOSE, URINE NEGATIVE (NEGATIVE); KETONES,URINE NEGATIVE (NEGATIVE); PROTEIN,URINE NEGATIVE (NEGATIVE); URINE SPECIFIC GRAVITY 1.003; UROBILINOGEN,URINE NEGATIVE mg/dL (<2.0)
[2019-01-31 14:55] LABS: ABSOLUTE EOSINOPHILS # (AUTO) 0.4 10^3/uL (0.0-0.6); ABSOLUTE MONOCYTES (AUTO) 0.5 10^3/uL (0.1-1.4); ABSOLUTE NEUT (AUTO) 4.9 10^3/uL (1.7-8.2); BASOPHILS % (AUTO) 0.5 % (0-2); EOSINOPHILS % (AUTO) 4.8 % (0-6); HEMATOCRIT 45.7 % (36.0-47.0); HEMOGLOBIN 15.9 g/dL (12.0-15.5); LYMPHOCYTES % (AUTO) 34.3 % (13-45); MEAN CORPUSCULAR HGB CONC 34.8 g/dL (32.0-36.0); MEAN CORPUSCULAR VOLUME 95 fl (80-97); MONOCYTES % (AUTO) 5.3 % (3-13); PLATELET COUNT 216 10^3/uL (150-450); RED BLOOD COUNT 4.83 10^6/uL (3.72-5.28); RED CELL DISTRIBUTION WIDTH 13.7 % (11.5-14.0); SEGMENTED NEUTROPHILS % (AUTO) 55.1 % (42-78); TOTAL CELLS COUNTED % (AUTO) 100 %; WHITE BLOOD COUNT 8.9 10^3/uL (4.0-10.5)
[2019-01-31 15:16] LABS: ALBUMIN 4.5 g/dL (3.5-5.0); ALKALINE PHOSPHATASE 91 U/L (38-126); ANION GAP 14 (5-19); ASPARTATE AMINO TRANSFERASE 25 U/L (14-36); BILIRUBIN,DIRECT 0.2 mg/dL (0.0-0.4); BILIRUBIN,TOTAL 0.5 mg/dL (0.2-1.3); BLOOD UREA NITROGEN 12 mg/dL (7-20); CALCIUM 10.5 mg/dL (8.4-10.2); CARBON DIOXIDE 22 mmol/L (22-30); CHLORIDE 105 mmol/L (98-107); GLUCOSE 99 mg/dL (75-110); POTASSIUM 3.7 mmol/L (3.6-5.0); TOTAL PROTEIN 7.9 g/dL (6.3-8.2)
--- NOTE | 2019-01-31 15:55 | ER Document Report ---
ED General - General Chief Complaint: Post Surgical Pain Stated Complaint: ABD PAIN, SWELLING/POST HERNIA SURGERY Time Seen by Provider: 01/31/19 14:05 Primary Care Provider: ROSI BERNABE MD [Primary Care Provider] - Follow up as needed Mode of Arrival: Ambulatory Information source: Patient TRAVEL OUTSIDE OF THE [place] IN LAST 30 DAYS: No - HPI Patient complains to provider of: Patient complains of left-sided abdominal pain in the area of prior surgery Onset: Last week Onset/Duration: Gradual Quality of pain: Cramping, Fullness, Sharp Associated symptoms: Nausea Exacerbated by: Other - Nonspecific exacerbation signs. Patient has decreased intake of food and liquid as a result of her pain. She denies of obstruction and is having bowel movements. Dates that she noted dark stool and when she vomits she saw some coffee ground substance. Patient admits to taking ibuprofen. Similar symptoms previously: No - Related Data Allergies/Adverse Reactions: ciprofloxacin [From Cipro] Allergy (Unknown, Verified 12/03/18 11:47) Past Medical History - General Information source: Patient - Social History Smoking Status: Current Every Day Smoker Frequency of alcohol use: None Drug Abuse: None Family History: Hypertension Patient has suicidal ideation: No Patient has homicidal ideation: No - Past Medical History Cardiac Medical History: Reports: Hx Hypertension Renal/ Medical History: Denies: Hx Peritoneal Dialysis Musculoskeletal Medical History: Reports Hx Arthritis, Reports Hx Muscle Spasm Psychiatric Medical History: Reports: Hx Depression Past Surgical History: Reports: Hx Abdominal Surgery - 01/04/19 hernia repair, Hx Appendectomy, Hx Cholecystectomy, Hx Hysterectomy - Immunizations Hx Diphtheria, Pertussis, Tetanus Vaccination: Yes Review of Systems - Review of Systems Constitutional: See HPI EENT: No symptoms reported Respiratory: No symptoms reported Gastrointestinal: See HPI Musculoskeletal: No symptoms reported Skin: No symptoms reported Hematologic/Lymphatic: No symptoms reported Neurological/Psychological: No symptoms reported Physical Exam - Vital signs Vitals: Temp Pulse Resp BP Pulse Ox 98.1 F 108 H 18 192/119 H 97 01/31/19 14:03 01/31/19 14:03 01/31/19 14:03 01/31/19 14:03 01/31/19 14:03 Course - Vital Signs Vital signs: Temp Pulse Resp BP Pulse Ox 98.3 F 108 H 20 195/153 H 96 01/31/19 18:00 01/31/19 14:03 01/31/19 19:03 01/31/19 19:03 01/31/19 19:03 - Laboratory Result Diagrams: 01/31/19 14:40 01/31/19 14:40 Laboratory results interpreted by me: 01/31/19 01/31/19 01/31/19 14:15 14:40 14:40 Hgb 15.9 H Calcium 10.5 H Urine Blood SMALL H - Diagnostic Test Radiology reviewed: Image reviewed, Reports reviewed Discharge - Discharge Clinical Impression: Gastritis Qualifiers: Gastritis type: unspecified gastritis Chronicity: unspecified Gastritis bleeding: without bleeding Qualified Code(s): K29.70 - Gastritis, unspecified, without bleeding Abdominal pain Qualifiers: Abdominal location: left lower quadrant Qualified Code(s): R10.32 - Left lower quadrant pain Condition: Good Disposition: HOME, SELF-CARE Instructions: Abdominal Pain ([facility]) Additional Instructions: Patient is recommended she discontinue use of ibuprofen inasmuch as she is now complaining of melena and coffee-ground emesis on occasion. CT scan did not show any perforation of any gastric wall. Patient is advised to begin taking Tylenol as needed for pain. Prescriptions: Ondansetron [Zofran Odt 4 mg Tablet] 4 mg PO Q4HP PRN #30 tab.rapdis PRN Reason: For Nausea/Vomiting Pantoprazole Sodium [Protonix [address] Tablet] 40 mg PO QAM 30 Days #30 tablet. Referrals: ROSI BERNABE MD [Primary Care Provider] - Follow up as needed
[2019-01-31] MEDS ORDERED: PANTOPRAZOLE SODIUM 40 MG VIAL IV ONE (16:13)
[2019-01-31] MEDS ORDERED: ONDANSETRON HCL INJ/PF 4 MG/2 ML SDV IV ONE (16:17)
[2019-01-31] MEDS ORDERED: MORPHINE SULFATE 10 MG/ML INJ IV ONE (16:17)
--- NOTE | 2019-01-31 16:18 | ER Document Report ---
ED GI/ - General Chief Complaint: Post Surgical Pain Stated Complaint: ABD PAIN, SWELLING/POST HERNIA SURGERY Time Seen by Provider: 01/31/19 14:05 Primary Care Provider: ROSI BERNABE MD [Primary Care Provider] - Follow up as needed Mode of Arrival: Ambulatory Information source: Patient TRAVEL OUTSIDE OF THE [place] IN LAST 30 DAYS: No - HPI Patient complains to provider of: Abdominal pain Onset: Other - 10 days ago Timing/Duration: Intermittent, Worse Quality of pain: Achy, Cramping Severity at maximum: Severe Severity in ED: Severe Pain Level: 5 Location: LUQ, LLQ Associated symptoms: Nausea, Vomiting, Other - Coffee ground emesis and melena Exacerbated by: Other - Pain is chronic despite activities or position Relieved by: Other - Pain is not relieved by taking ibuprofen Similar symptoms previously: No - Related Data Allergies/Adverse Reactions: ciprofloxacin [From Cipro] Allergy (Unknown, Verified 12/03/18 11:47) Past Medical History - General Information source: Patient - Social History Smoking Status: Current Every Day Smoker Frequency of alcohol use: None Drug Abuse: None Family History: Hypertension Patient has suicidal ideation: No Patient has homicidal ideation: No - Past Medical History Cardiac Medical History: Reports: Hx Hypertension Renal/ Medical History: Denies: Hx Peritoneal Dialysis Musculoskeletal Medical History: Reports Hx Arthritis, Reports Hx Muscle Spasm Psychiatric Medical History: Reports: Hx Depression Past Surgical History: Reports: Hx Abdominal Surgery - 01/04/19 hernia repair, Hx Appendectomy, Hx Cholecystectomy, Hx Hysterectomy - Immunizations Hx Diphtheria, Pertussis, Tetanus Vaccination: Yes Review of Systems - Review of Systems Constitutional: See HPI EENT: No symptoms reported Cardiovascular: No symptoms reported Respiratory: No symptoms reported Gastrointestinal: No symptoms reported, See HPI, Abdominal pain Genitourinary: No symptoms reported Skin: No symptoms reported Hematologic/Lymphatic: No symptoms reported Neurological/Psychological: No symptoms reported Physical Exam - Vital signs Vitals: Temp Pulse Resp BP Pulse Ox 98.1 F 108 H 18 192/119 H 97 01/31/19 14:03 01/31/19 14:03 01/31/19 14:03 01/31/19 14:03 01/31/19 14:03 Interpretation: Normal - General General appearance: Appears well, Alert - HEENT Head: Normocephalic, Atraumatic Eyes: Normal Pupils: PERRL - Respiratory Respiratory status: No respiratory distress Chest status: Nontender Breath sounds: Normal Chest palpation: Normal - Cardiovascular Rhythm: Regular Heart sounds: Normal auscultation Murmur: No - Abdominal Inspection: Normal - Ambulating in the department with a slow gait. Patient complains of pain in her left lower quadrant left upper quadrant Distension: No distension, Distended Bowel sounds: Normal Tenderness: Nontender, Guarding Organomegaly: No organomegaly - Back Back: Normal, Nontender - Extremities General upper extremity: Normal inspection, Nontender, Normal color, Normal ROM, Normal temperature General lower extremity: Normal inspection, Nontender, Normal color, Normal ROM, Normal temperature, Normal weight bearing. No: Tory's sign - Neurological Neuro grossly intact: Yes Cognition: Normal Orientation: AAOx4 [place] Coma Scale Eye Opening: Spontaneous [place] Coma Scale Verbal: Oriented [place] Coma Scale Motor: Obeys Commands Radames Coma Scale Total: 15 Speech: Normal Motor strength normal: LUE, RUE, LLE, RLE Sensory: Normal - Psychological Associated symptoms: Normal affect, Normal mood - Skin Skin Temperature: Warm Skin Moisture: Dry Skin Color: Normal Course - Vital Signs Vital signs: Temp Pulse Resp BP Pulse Ox 98.3 F 108 H 16 185/113 H 94 01/31/19 20:00 01/31/19 14:03 01/31/19 20:00 01/31/19 19:32 01/31/19 20:00 - Laboratory Result Diagrams: 01/31/19 14:40 01/31/19 14:40 Laboratory results interpreted by me: 01/31/19 01/31/19 01/31/19 14:15 14:40 14:40 Hgb 15.9 H Calcium 10.5 H Urine Blood SMALL H - Diagnostic Test Radiology reviewed: Image reviewed, Reports reviewed Discharge - Discharge Clinical Impression: Gastritis Qualifiers: Gastritis type: unspecified gastritis Chronicity: unspecified Gastritis bleeding: without bleeding Qualified Code(s): K29.70 - Gastritis, unspecified, without bleeding Abdominal pain Qualifiers: Abdominal location: left lower quadrant Qualified Code(s): R10.32 - Left lower quadrant pain Condition: Good Disposition: HOME, SELF-CARE Instructions: Abdominal Pain ([facility]) Additional Instructions: Patient is recommended she discontinue use of ibuprofen inasmuch as she is now complaining of melena and coffee-ground emesis on occasion. CT scan did not show any perforation of any gastric wall. Patient is advised to begin taking Tylenol as needed for pain. Prescriptions: Ondansetron [Zofran Odt 4 mg Tablet] 4 mg PO Q4HP PRN #30 tab.rapdis PRN Reason: For Nausea/Vomiting Pantoprazole Sodium [Protonix [address] Tablet] 40 mg PO QAM 30 Days #30 tablet. Referrals: ROSI BERNABE MD [Primary Care Provider] - Follow up as needed
[2019-01-31 17:03] LABS: INTERNATIONAL RATION (INR) 0.92; PROTHROMBIN TIME 12.4 SEC (11.4-15.4)
[2019-01-31 17:04] LABS: PARTIAL THROMBOPLASTIN TIME 31.8 SEC (23.5-35.8)
--- NOTE | 2019-01-31 17:15 | RADIOLOGY REPORT (SQ) ---
EXAM DESCRIPTION: CHEST SINGLE VIEW COMPLETED DATE/TIME: 01/31/2019 4:55 pm REASON FOR STUDY: abdominal pain/post op COMPARISON: PA and lateral views of the chest from 02/07/2014. EXAM PARAMETERS: NUMBER OF VIEWS: One view. TECHNIQUE: Single frontal radiographic view of the chest acquired. RADIATION DOSE: NA LIMITATIONS: None. FINDINGS: LUNGS AND PLEURA: No consolidation, pleural effusion or pneumothorax. MEDIASTINUM AND HILAR STRUCTURES: No mediastinal or hilar contour abnormality. HEART AND VASCULAR STRUCTURES: The cardiac silhouette and pulmonary vasculature are within normal ariza its. BONES: No acute findings. HARDWARE: None in the chest. OTHER: No other finding. IMPRESSION: No acute cardiopulmonary process. TECHNICAL DOCUMENTATION: JOB ID: [id number] [employer]- All Rights Reserved Reading location - IP/workstation name: [email or web address]
--- NOTE | 2019-01-31 17:34 | RADIOLOGY REPORT (SQ) ---
EXAM DESCRIPTION: CT ABD/PELVIS WITH IV ONLY COMPLETED DATE/TIME: 01/31/2019 4:50 pm REASON FOR STUDY: 30 days postop abd surgery/hernia repairs COMPARISON: CT of the abdomen and pelvis with contrast from 01/07/2019. TECHNIQUE: CT scan of the abdomen and pelvis performed using helical scanning technique with dynamic intravenous contrast injection. No oral contrast. Images reviewed with lung, soft tissue, and bone windows. Reconstructed coronal and sagittal MPR images reviewed. Delayed images for evaluation of the urinary system also acquired. All images stored on PACS. All CT scanners at this facility use dose modulation, iterative reconstruction, and/or weight based d osing when appropriate to reduce radiation dose to as low as reasonably achievable (ALARA). [facility]: Dose Right [facility]: CareDose [facility]: Dose Right [facility]: Teradose 4D [facility]: FanIQ CONTRAST TYPE AND DOSE: Contrast/concentration: Isovue 350.00 mg/ml; Total Contrast Delivered: 100.0 ml; Total Saline Delivered: 72.0 ml RENAL FUNCTION: GFR > 60. RADIATION DOSE: CT Rad equipment meets quality standard of care and radiation dose reduction techniq ues were employed. CTDIvol: 18.4 - 19.6 mGy. DLP: 2070 mGy-cm.. LIMITATIONS: None. FINDINGS: LOWER CHEST: No acute findings. LIVER: Heterogeneous enhancement pattern of the hepatic parenchyma is unchanged and could in part rep resent a combination of hepatic steatosis with geographic areas of fat sparing. The portal and hepat ic veins are patent. There is no hepatic mass. SPLEEN: No splenomegaly or splenic mass PANCREAS: No acute abnormality. GALLBLADDER: The gallbladder is surgically absent. ADRENAL GLANDS: No mass or asymmetry. RIGHT KIDNEY AND URETER: No solid mass, hydronephrosis, nephrolithiasis, hydroureter or ureterolithia sis LEFT KIDNEY AND URETER: No solid mass, hydronephrosis, nephrolithiasis, hydroureter or ureterolithias is. AORTA AND VESSELS: No aneurysm or dissection of the abdominal aorta. RETROPERITONEUM: No retroperitoneal adenopathy, hemorrhage or mass. BOWEL AND PERITONEAL CAVITY: No bowel obstruction, bowel wall thickening, or pericolonic/perienteric inflammation. No mesenteric adenopathy, free intraperitoneal air, or mesenteric/peritoneal mass. APPENDIX: Unable to identify the appendix PELVIS: The uterus is surgically absent. The urinary bladder is distended and normal in appearance. ABDOMINAL WALL: The subcutaneous emphysema described on the correlative CT from 01/07/2019 is no long er present. There is a focal subcutaneous collection above the umbilicus on image 40 of series 3 jorden t measures 3.3 x 1.1 cm - the collection has decreased in size from the prior CT (it measured 4 x 1.5 cm). There is mild residual subcutaneous fat stranding in the left ventrolateral abdominal wall. BONES: No acute findings. OTHER: No other finding. IMPRESSION: 1. No acute intra-abdominal abnormality. 2. Residual postoperative findings in the ventral and ventral lateral abdominal wall as detailed abov e ; of particular interest is a focal subcutaneous collection above the umbilicus that measures 3.3 x 1.1 cm and that has decreased in size from the prior CT (it measured 4 x 1.5 cm). The collection co uld represent a postoperative hematoma or seroma. TECHNICAL DOCUMENTATION: JOB ID: [id number] Quality ID # [id number]: Final reports with documentation of one or more dose reduction techniques (e.g., Au tomated exposure control, adjustment of the mA and/or kV according to patient size, use of iterative reconstruction technique) 2010 [employer]- All Rights Reserved Reading location - IP/workstation name: [email or web address]
[2019-01-31] MEDS: MORPHINE SULFATE 10 MG/ML INJ IV PRN ×2 (18:26→19:50)
[2019-01-31] MEDS ORDERED: LABETALOL HCL INJ 20 MG/4 ML DISP.SYRIN IV ONE (18:36)
--- NOTE | 2019-01-31 19:18 | PDOC CONSULTATION ---
Consultation Consult Date: 01/31/19 Attending physician:: PAULINO MELISSA Provider Consulted: FABIÁN PANDYA Consult reason:: abdominal pain post hernia repair History of Present Illness Admission Date/PCP: ROSI BERNABE MD History of Present Illness: MAXIMILIAN MCGHEE is a 53 year old femalepresented to ED for complaint of postop abdominal pain. She states she just saw Dr. Maya the surgeon about 15 to 20 minutes ago and he sent her to the emergency room. Patient says that he told her he was going to probably have to admit her due to the abdominal distention and pain. Her surgery was January 03 for hernia repairs x4 the abdomen. She stated that he wanted a blood and urine with possible CAT scan it may be a scope. Patient is alert oriented respirations regular nonlabored speaking in full sentences. She does look uncomfortable at this time. Past Medical History Cardiac Medical History: Reports: Hypertension Musculoskeltal Medical History: Reports: Arthritis Psychiatric Medical History: Reports: Depression Past Surgical History Past Surgical History: Reports: Appendectomy, Cholecystectomy, Hysterectomy Social History Smoking Status: Current Every Day Smoker Frequency of Alcohol Use: Rare Drugs: None Family History Family History: Hypertension Parental Family History Reviewed: No Children Family History Reviewed: NA Sibling(s) Family History Reviewed.: NA Medication/Allergy Home Medications: Lisinopril/Hydrochlorothiazide [Lisinopril-Hctz 10-12.5 mg Tab] 1 each PO DAILY 01/03/19 Metoprolol Tartrate [Lopressor 50 mg Tablet] 50 mg PO Q12 01/03/19 Tramadol HCl [Ultram 50 mg Tablet] 50 mg PO Q8HP PRN 01/03/19 Allergies/Adverse Reactions: ciprofloxacin [From Cipro] Allergy (Unknown, Verified 12/03/18 11:47) Review of Systems Constitutional: PRESENT: fatigue, weight loss Eyes: ABSENT: as per HPI, visual disturbances, other Ears: ABSENT: as per HPI, hearing changes, other Nose, Mouth, and Throat: ABSENT: as per HPI, headache(s), mouth pain, sore throat, vertigo, other Breasts: ABSENT: as per HPI, other Cardiovascular: ABSENT: as per HPI, chest pain, dyspnea on exertion, edema, orthropnea, palpitations, other Respiratory: ABSENT: as per HPI, cough, dyspnea, hemoptysis, sputum, other Gastrointestinal: PRESENT: abdominal pain Genitourinary: ABSENT: as per HPI, difficulty urinating, dysuria, hematuria, nocturia, other Musculoskeletal: PRESENT: back pain, muscle weakness, other - Abdominal pain left lateral abdominal wall Integumentary: ABSENT: as per HPI, diaphoresis, erythema, lesions, pruritus, rash, wounds, other Neurological: ABSENT: as per HPI, abnormal gait, abnormal movements, abnormal speech, confusion, convulsions, dizziness, focal weakness, frequent falls, lack of coordination, memory loss, numbness, paresthesias, restless legs, syncope, tingling, tremor(s), vertigo, weakness, other Psychiatric: ABSENT: as per HPI, anxiety, depression, hallucinations, homidical ideation, suicidal ideation, other Endocrine: ABSENT: as per HPI, cold intolerance, flushing, heat intolerance, menstrual abnormalities, polydipsia, polyphagia, polyuria, other Hematologic/Lymphatic: ABSENT: as per HPI, easy bleeding, easy bruising, lymphadenopathy, other Allergic/Immunologic: ABSENT: as per HPI, seasonal rhinorrhea, other Physical Exam Vital Signs: Temp Pulse Resp BP Pulse Ox 98.3 F 108 H 19 189/103 H 95 01/31/19 18:00 01/31/19 14:03 01/31/19 18:31 01/31/19 18:31 01/31/19 18:31 Intake & Output 01/30/19 01/31/19 02/01/19 06:59 06:59 06:59 Intake Total 230 Balance 230 Weight 96.7 kg General appearance: PRESENT: mild distress Head exam: PRESENT: normocephalic Eye exam: PRESENT: EOMI Ear exam: PRESENT: normal external ear exam Mouth exam: PRESENT: moist Neck exam: PRESENT: full ROM Respiratory exam: PRESENT: clear to auscultation neptali Cardiovascular exam: PRESENT: RRR Pulses: PRESENT: normal radial pulses, normal femoral pulses GI/Abdominal exam: PRESENT: other - Abdomen is soft there is previous left lateral abdominal laparoscopic incision sites with some swelling underneath the skin and tenderness to palpation of the umbilicus there is also some mild tenderness to palpation there is no evidence of any hernia formation Rectal exam: PRESENT: deferred Extremities exam: PRESENT: full ROM Musculoskeletal exam: PRESENT: ambulatory Neurological exam: PRESENT: alert, awake Psychiatric exam: PRESENT: appropriate affect Focused psych exam: ABSENT: catatonic, delusional, euphoric, flight of ideas, internal stimuli, paranoid, pressured speech, psychomotor agitation, restlessness, other Skin exam: ABSENT: abrasion, cyanosis, dry, erythema, intact, jaundice, mottled, normal color, pallor, petechiae, rash, skin tears, urticaria, vesicles, warm, other Results Laboratory Results: 01/31/19 14:40 01/31/19 14:40 01/31/19 01/31/19 01/31/19 14:15 14:40 14:40 WBC 8.9 RBC 4.83 Hgb 15.9 H Hct 45.7 MCV 95 MCH 33.0 MCHC 34.8 RDW 13.7 Plt Count 216 Seg Neutrophils % 55.1 Sodium 141.0 Potassium 3.7 Chloride 105 Carbon Dioxide 22 Anion Gap 14 BUN 12 Creatinine 0.67 Est GFR ( Amer) > 60 Glucose 99 Lactic Acid Calcium 10.5 H Total Bilirubin 0.5 AST 25 Alkaline Phosphatase 91 Total Protein 7.9 Albumin 4.5 Lipase 49.5 Urine Color STRAW Urine Appearance CLEAR Urine pH 6.0 Ur Specific [place] 1.003 Urine Protein NEGATIVE Urine Glucose (UA) NEGATIVE Urine Ketones NEGATIVE Urine Blood SMALL H Blood Type Antibody Screen 01/31/19 01/31/19 16:25 16:25 WBC RBC Hgb Hct MCV MCH MCHC RDW Plt Count Seg Neutrophils % Sodium Potassium Chloride Carbon Dioxide Anion Gap BUN Creatinine Est GFR ( Amer) Glucose Lactic Acid 1.4 Calcium Total Bilirubin AST Alkaline Phosphatase Total Protein Albumin Lipase Urine Color Urine Appearance Urine pH Ur Specific [place] Urine Protein Urine Glucose (UA) Urine Ketones Urine Blood Blood Type O POSITIVE Antibody Screen NEGATIVE Impressions: Abdomen/Pelvis CT 01/31/19 16:07 IMPRESSION: 1. No acute intra-abdominal abnormality. 2. Residual postoperative findings in the ventral and ventral lateral abdominal wall as detailed above ; of particular interest is a focal subcutaneous collection above the umbilicus that measures 3.3 x 1.1 cm and that has decreased in size from the prior CT (it measured 4 x 1.5 cm). The collection could represent a postoperative hematoma or seroma. Chest X-Ray 01/31/19 16:14 IMPRESSION: No acute cardiopulmonary process. Assessment & Plan - Plan Summary Plan Summary: Impression is status post abdominal wall hernia repair with postoperative pain No evidence of recurrent hernia on CT scan or other intra-abdominal process. There is some stranding in the abdominal wall on the left side which is resolving on serial CT scans obtained when patient comes to the emergency room. Recommendations #1 would decrease her Motrin use as she is states that she is using over 100 Motrin tablets over the last few weeks. Recommend abdominal binder which will improve the pain in the left abdominal wall secondary to the stranding Would supplement her Motrin use with plain Tylenol and decrease her Motrin intake secondary to the possible risk of ulcers. Would start her on proton pump inhibitors and or Carafate if she continues to use her Motrin however she should be counseled on decreased Motrin use. She can follow-up in surgery as needed
[2019-01-31 20:00] VITALS: BP 185/113
== END 2019-01-31 20:08 | disposition home or self-care (01) ==
LOC: ER 13:58
DX: K29.70 Gastritis, unspecified, without bleeding (principal); R10.32 Left lower quadrant pain; G89.18 Other acute postprocedural pain; R10.9 Unspecified abdominal pain; R19.00 Intra-abdominal and pelvic swelling, mass and lump, unspecified site; F17.200 Nicotine dependence, unspecified, uncomplicated; I10 Essential (primary) hypertension
CPT/HCPCS: 86900; 86901; 36415; 87040; 86850; 83605; 83690; 85025; 85610; 85730; 80053; 81001; 71045; 74177; J3490; J2270; C9113; J2405; J7030; 96361; 96374; 96375; 96376; 99284